=== PATIENT | male | born 1935 | race Caucasian/White ===

== ENCOUNTER 2017-09-12 08:10 | Day surgery (SDC) | payer OTHER, MEDICARE ==
--- NOTE | 2017-09-11 12:36 | RAD REPORT ---
EXAM DESCRIPTION: Annt Single View09/11/2017 12:30 pm CLINICAL HISTORY: Coronary artery disease/preop for heart catheterization COMPARISON: 2016 FINDINGS: A few areas of scarring or subsegmental atelectasis are present within the lung bases. Th e remainder of the lungs appear clear of acute infiltrate. The heart is mildly enlarged
[2017-09-11 12:41] LABS: Absolute Lymphocytes (CBC) 1.6 K/uL (0.7-4.9); Absolute Monocytes 0.8 K/uL (0.1-1.3); Absolute Neutrophil 4.5 K/uL (1.8-8.0); Basophils % 0.7 % (0-1.3); Eosinophils % 1.1 % (0-4.4); Hematocrit 31.3 % (39.6-49.0); Lymphocytes % 22.9 % (15.3-44.8); MCH 31.5 pg (27.0-35.0); MCV 93.5 fL (80-100); MPV 8.8 fL (7.6-11.3); RBC Red Blood Cell Count 3.35 M/uL (4.33-5.43)
[2017-09-11 12:46] LABS: Potassium 4.9 mmol/L (3.5-5.1)
[2017-09-11 13:15] LABS: Protime INR 0.93
[2017-09-11 13:51] LABS: Blood Morphology Comment NOT SEEN (NOT SEEN); Platelet Estimate ADEQ; Urine White Blood Cell Casts OK
[2017-09-12] MEDS ORDERED: NA CHLORIDE 0.9% 1,000 ML ONE (08:31)
[2017-09-12] MEDS ORDERED: HEPA 1000U/500MLS 1,000 UNIT/500 ML BAG IV ONE (09:42)
[2017-09-12] MEDS ORDERED: FENTANYL CITR 100 MCG/2 ML ONE (10:06)
[2017-09-12] MEDS ORDERED: MIDAZOLAM HCL 2 MG/2 ML INJ ONE ×2 (10:06→10:15)
[2017-09-12 12:03] VITALS: TEMP 97.9
[2017-09-12 12:16] VITALS: BP 124/61; O2SAT 96
--- NOTE | 2017-09-12 22:11 | OP ---
Surgeon: Carmelo Lance MD Admitted to my service as an outpatient. Reason For Admission: An outpatient heart catheterization. Procedures: Left heart catheterization, selective coronary artery angiogram. Indication: Unstable angina and history of coronary artery disease, status post LAD stent in the pas t. Indication: Mr. Guido is 82 years old who was brought to the phlebotomy lab assistant as an outpatient, prepped an d draped in the routine sterile fashion, given 2 mg of Versed and 25 of fentanyl for sedation. A 6-F rench sheath was introduced in the right common femoral artery successfully. Angio-Seal was used to close the case. Angiogram there was normal. A 6-Kyr[place] Milena catheters were used to do the miller ry angiogram. He had a very large RCA, it was right dominant, minimal plaquing in it, nondominant ci rcumflex and OM that were normal. He had minimal plaquing in the distal LAD but patent mid LAD stent . There were no complications or blood loss. Postoperative Diagnosis: Coronary artery disease, status post LAD stent in the past, patent; chronic coronary artery disease, plan is for medical therapy. Co-erector operator: Johana Angel. Sedation: Total conscious sedation for 30 minutes. NANCY/SUKH Voice ID: [id number] Report ID: [id number]
== END 2017-09-12 12:35 | disposition home or self-care (01) ==
LOC: CCL 08:10
PROC: 4A023N7 Measurement of Cardiac Sampling and Pressure, Left Heart, Percutaneous Approach (ICD-10-PCS; principal; 2017-09-12)
PROC: B211YZZ Fluoroscopy of Multiple Coronary Arteries using Other Contrast (ICD-10-PCS; 2017-09-12)
DX: I25.110 Atherosclerotic heart disease of native coronary artery with unstable angina pectoris (principal); R06.02 Shortness of breath; E11.9 Type 2 diabetes mellitus without complications; I10 Essential (primary) hypertension; E78.5 Hyperlipidemia, unspecified; E78.6 Lipoprotein deficiency; Z95.5 Presence of coronary angioplasty implant and graft
CPT/HCPCS: 36415; 71045; 80048; 82962; 85025; 85610; 85730; 93454; 93458; C1760; C1893; J2250 ×2; J3010; J7030

== ENCOUNTER 2019-08-14 17:25 | Observation (INO) | payer OTHER, MEDICARE ==
[2019-08-14] MEDS ORDERED: NA CHLORIDE 0.9% 2,000 ML ONE (18:16)
--- NOTE | 2019-08-14 18:33 | RAD REPORT ---
EXAM DESCRIPTION: RAD - Chest Single View - 08/14/2019 6:28 pm CLINICAL HISTORY: Fever;Dyspnea Chest pain. COMPARISON: Chest Pa And Lat (2 Views) dated 10/18/2018; Chest Single View dated 09/11/2017; Chest Sing le View dated 12/03/2015; Chest Single View dated 11/10/2015 FINDINGS: Portable technique limits examination quality. The lungs are underinflated which results in vascular crowding. The heart is mildly enlarged in size. Prominent degenerative changes are present both shoulders, greater on the right.
[2019-08-14 18:35] LABS: Absolute Lymphocytes (CBC) 0.8 K/uL (0.7-4.9); Basophils % 0.5 % (0-1.3); Hematocrit 29.9 % (39.6-49.0); Lymphocytes % 9.2 % (15.3-44.8); MPV 8.9 fL (7.6-11.3); RBC Red Blood Cell Count 3.23 M/uL (4.33-5.43)
[2019-08-14 18:38] LABS: Protime INR 1.03
[2019-08-14 18:56] LABS: ALT/SGPT 18 U/L (12-78); AST/SGOT 12 U/L (15-37); Albumin 3.5 g/dL (3.4-5.0); Alkaline Phosphatase 61 U/L (45-117); BUN Blood Urea Nitrogen 29 mg/dL (7-18); Bicarbonate 28 mmol/L (21-32); Bilirubin Direct 0.3 mg/dL (0-0.2); Bilirubin Total 0.9 mg/dL (0.2-1.0); Glucose Level 110 mg/dL (74-106); Magnesium 1.5 mg/dL (1.8-2.4); NT PRO-BNP 704 pg/mL (<450); Potassium 4.1 mmol/L (3.5-5.1); Protein, Total 7.4 g/dL (6.4-8.2); Sodium Level 135 mmol/L (136-145); Troponin (Emerg Dept Use Only) < 0.02 ng/mL (0.0-0.045)
[2019-08-14] MEDS ORDERED: Magnesium Sulfate 2gm IVPB 2 G/50 ML BAG IV ONE (19:18)
--- NOTE | 2019-08-14 19:46 | EDPHYS ---
Physician Documentation [facility] Name: Jose Le Age: 84 yrs Sex: Male : 1935 Arrival Date: 08/14/2019 Time: 17:29 Bed 4 Private MD: ED Physician Nikko Rodríguez HPI: 08/13 18:05 This 84 yrs old Male presents to ER via Ambulatory with complaints of Fever, jerrica Diarrhea, Low O2. 18:05 The patient reports fever, that was measured at 100 degrees Fahrenheit. Onset: The jerrica symptoms/episode began/occurred today. Modifying factors: there are no obvious modifying factors. Associated signs and symptoms: Pertinent positives: cough, diarrhea. Severity of symptoms: At their worst the symptoms were mild moderate in the emergency department the symptoms are unchanged. The patient has not experienced similar symptoms in the past. Historical: - Allergies: 17:43 Morphine; tw2 17:43 hydrocodone; tw2 17:43 acetaminophen; tw2 - Home Meds: 17:43 gabapentin 100 mg oral cap 1 caps 3 times per day [Active]; amlodipine 5 mg tab 1 tab tw2 once daily [Active]; aspirin 81 mg Oral TbEC 1 tab once daily [Active]; glimepiride 1 mg Oral tab 1 tab once daily [Active]; Glucosamine 500 mg Oral tab 3 capsule daily [Active]; krill oil 350 mg Oral 1 capsule daily [Active]; losartan 50 mg Oral tab 1 tab once daily [Active]; omeprazole 40 mg Oral cpDR 1 cap once daily [Active]; pravastatin 40 mg Oral tab 1 tab once daily [Active]; metoprolol tartrate 50 mg Oral tab 1 tab once daily [Active]; tamsulosin 0.4 mg Oral cp24 1 cap once daily [Active]; - PMHx: 17:43 Diabetes - NIDDM; High Cholesterol; tw2 - PSHx: 17:43 Heart stents; tw2 - Immunization history:: Adult Immunizations. - Social history:: Smoking status: . - Family history:: not pertinent. ROS: 18:05 Eyes: Negative for injury, pain, redness, and discharge, ENT: Negative for injury, jerrica pain, and discharge, Neck: Negative for injury, pain, and swelling, Cardiovascular: Negative for chest pain, palpitations, and edema, Respiratory: Negative for shortness of breath, cough, wheezing, and pleuritic chest pain, Back: Negative for injury and pain, : Negative for injury, bleeding, discharge, and swelling, MS/Extremity: Negative for injury and deformity, Skin: Negative for injury, rash, and discoloration, Neuro: Negative for headache, weakness, numbness, tingling, and seizure, Psych: Negative for depression, anxiety, suicide ideation, homicidal ideation, and hallucinations, Allergy/Immunology: Negative for hives, rash, and allergies, Endocrine: Negative for neck swelling, polydipsia, polyuria, polyphagia, and marked weight changes, Hematologic/Lymphatic: Negative for swollen nodes, abnormal bleeding, and unusual bruising. 18:05 Constitutional: Positive for body aches, chills, fever, malaise. 18:05 Abdomen/GI: Positive for diarrhea. Exam: 18:05 Head/Face: Normocephalic, atraumatic. Eyes: Pupils equal round and reactive to light, jerrica extra-ocular motions intact. Lids and lashes normal. Conjunctiva and sclera are non-icteric and not injected. Cornea within normal limits. Periorbital areas with no swelling, redness, or edema. ENT: Nares patent. No nasal discharge, no septal abnormalities noted. Tympanic membranes are normal and external auditory canals are clear. Oropharynx with no redness, swelling, or masses, exudates, or evidence of obstruction, uvula midline. Mucous membranes moist. Neck: Trachea midline, no thyromegaly or masses palpated, and no cervical lymphadenopathy. Supple, full range of motion without nuchal rigidity, or vertebral point tenderness. No Meningismus. Chest/axilla: Normal chest wall appearance and motion. Nontender with no deformity. No lesions are appreciated. Cardiovascular: Regular rate and rhythm with a normal S1 and S2. No gallops, murmurs, or rubs. Normal PMI, no JVD. No pulse deficits. Abdomen/GI: Soft, non-tender, with normal bowel sounds. No distension or tympany. No guarding or rebound. No evidence of tenderness throughout. Back: No spinal tenderness. No costovertebral tenderness. Full range of motion. Male : Normal genitalia with no discharge or lesions. Skin: Warm, dry with normal turgor. Normal color with no rashes, no lesions, and no evidence of cellulitis. MS/ Extremity: Pulses equal, no cyanosis. Neurovascular intact. Full, normal range of motion. Neuro: Awake and alert, GCS 15, oriented to person, place, time, and situation. Cranial nerves II-XII grossly intact. Motor strength 5/5 in all extremities. Sensory grossly intact. Cerebellar exam normal. Normal gait. Psych: Awake, alert, with orientation to person, place and time. Behavior, mood, and affect are within normal limits. 18:05 Constitutional: The patient appears alert, awake, comfortable, non-toxic, well developed, well hydrated, well groomed, well nourished, febrile, obese. 18:05 Respiratory: Exam negative for the patient does not display signs of respiratory distress, Respirations: normal, no acute changes, labored breathing, is not present, Breath sounds: are clear throughout, no bronchial sounds, no decreased breath sounds, no rales, rhonchi, no stridor, no wheezing. 18:15 ECG was reviewed by the Attending Physician. jerrica 18:15 Musculoskeletal/extremity: DVT Exam: No signs of deep vein thrombosis. no pain, no jerrica swelling, no tenderness, negative Homans' sign noted on exam, no appreciated bluish discoloration, no erythema, no increased warmth. Vital Signs: 17:43 BP 126 / 94; Pulse 94; Resp 18; Temp 99.3(O); Pulse Ox 93% on R/A; Weight 98.43 kg; tw2 Height 5 ft. 9 in. (175.26 cm); Pain 6/10; 18:33 BP 118 / 52; Pulse 94; Resp 19; Pulse Ox 95% on 2 lpm NC; sv 19:30 BP 106 / 51; Pulse 87; Resp 20; Temp 99.0(O); Pulse Ox 98% on 2 lpm NC; jb4 20:30 BP 100 / 56; Pulse 97; Resp 19; Pulse Ox 98% on R/A; jb4 20:42 Temp 98.9(O); oe 21:30 BP 126 / 63; Pulse 93; Resp 17; Temp 99.3(O); Pulse Ox 94% on 2 lpm NC; jb4 17:43 Body Mass Index 32.04 (98.43 kg, 175.26 cm) tw2 17:43 pt placed on 2L nc at this time and is 98% tw2 MDM: 17:51 Patient medically screened. [facility] 18:07 Data reviewed: vital signs, nurses notes, lab test result(s), EKG, radiologic studies, jerrica plain films. Data interpreted: ekg monitor tech: rate is 94 beats/min, Pulse oximetry: on room air is 93 %. Test interpretation: by ED physician or midlevel provider: ECG, plain radiologic studies. Counseling: I had a detailed discussion with the patient and/or guardian regarding: the historical points, exam findings, and any diagnostic results supporting the discharge/admit diagnosis, lab results, radiology results. 08/13 18:04 Order name: Basic Metabolic Panel; Complete Time: 18:59 [facility] 08/13 18:04 Order name: CBC with Diff; Complete Time: 18:53 [facility] 08/13 18:04 Order name: LFT's; Complete Time: 18:59 [facility] 08/13 18:04 Order name: Magnesium; Complete Time: 18:59 [facility] 08/13 18:04 Order name: NT PRO-BNP; Complete Time: 18:59 [facility] 08/13 18:04 Order name: PT-INR; Complete Time: 18:53 [facility] 08/13 18:04 Order name: Troponin (emerg Dept Use Only); Complete Time: 18:59 [facility] 08/13 18:04 Order name: Blood Culture Adult (2) jerrica 08/13 18:04 Order name: Lactate; Complete Time: 19:00 [facility] 08/13 18:04 Order name: Procalcitonin; Complete Time: 19:39 [facility] 08/13 18:04 Order name: Influenza Screen (a \T\ B); Complete Time: 19:00 [facility] 08/13 18:04 Order name: Stool Culture [facility] 08/13 18:04 Order name: Fecal Leukocyte Stain [facility] 08/13 18:04 Order name: Urine Culture [facility] 08/13 18:04 Order name: XRAY Chest (1 view); Complete Time: 18:53 [facility] 08/13 18:04 Order name: EKG; Complete Time: 18:05 [facility] 08/13 18:04 Order name: Cardiac monitoring; Complete Time: 18:04 [facility] 08/13 18:04 Order name: EKG - Nurse/Tech; Complete Time: 18:17 [facility] 08/13 18:04 Order name: IV Saline Lock; Complete Time: 18:34 [facility] 08/13 18:04 Order name: Labs collected and sent; Complete Time: 18:34 [facility] 08/13 18:04 Order name: O2 Per Protocol; Complete Time: 18:04 [facility] 08/13 18:04 Order name: O2 Sat Monitoring; Complete Time: 18:04 [facility] 08/13 18:04 Order name: Urine Dipstick-Ancillary (obtain specimen); Complete Time: 20:02 [facility] 08/13 20:02 Order name: Urine Dipstick--Ancillary (enter results) [facility] 08/13 20:13 Order name: Urine Dipstick-Ancillary; Complete Time: 21:21 EDMS EC:15 Rate is 98 beats/min. Rhythm is regular. QRS Enloe is Normal. NM interval is normal. QRS jerrica interval is normal. QT interval is normal. No Q waves. T waves are Normal. Clinical impression: Abnormal EKG without significant change. Interpreted by me. Reviewed by me. Administered Medications: 18:25 Drug: NS 0.9% 1000 ml Route: IV; Rate: 1 bolus; Site: right antecubital; sv 20:00 Follow up: Response: No adverse reaction; IV Status: Completed infusion; IV Intake: jb4 1000ml 18:25 Drug: NS 0.9% 1000 ml Route: IV; Rate: 1 bolus; Site: right antecubital; sv 20:00 Follow up: Response: No adverse reaction; IV Status: Completed infusion; IV Intake: jb4 1000ml 19:18 Drug: Magnesium Sulfate 2 grams Route: IVPB; Infused Over: 2 hrs; Site: right [facility] antecubital; 21:18 Follow up: Response: No adverse reaction; IV Status: Completed infusion [facility] 20:35 Drug: levofloxacin 500 mg Volume: 100 ml; Route: IVPB; Infused Over: 60 mins; Site: [facility] left hand; 21:35 Follow up: Response: No adverse reaction; IV Status: Completed infusion [facility] Disposition: 08/14/19 19:44 Hospitalization ordered by Winston Santos for Observation. Preliminary diagnosis are Fever, unspecified, Diarrhea, unspecified, Weakness, Hypoxemia, Anemia, unspecified, Unspecified kidney failure - acute on chronic, Hypomagnesemia, Type 2 diabetes mellitus. - Bed requested for Telemetry/MedSurg (Inpatient). - Status is Observation. jb4 - Condition is Stable. - Problem is new. - Symptoms have improved. Signatures: Dispatcher [employer] EDMS Dolores Gavin RN Nikko Silver MD MD cha Nieto, Roman, MD MD rn Lasagna, Tonya, RN RN tl1 Tamia Ritchie RN RN tw2 John Salamanca, RN RN jb4 Corrections: (The following items were deleted from the chart) 19:53 19:44 Hospitalization Ordered by Winston Santos MD for Observation. Preliminary diagnosis jerrica is Fever, unspecified; Diarrhea, unspecified; Weakness; Hypoxemia; Anemia, unspecified; Unspecified kidney failure. Bed requested for Telemetry/MedSurg (Inpatient). Status is Observation. Condition is Stable. Problem is new. Symptoms have improved. [facility] 19:53 19:53 08/14/2019 19:44 Hospitalization Ordered by Winston Santos MD for Observation. jerrica Preliminary diagnosis is Fever, unspecified; Diarrhea, unspecified; Weakness; Hypoxemia; Anemia, unspecified; Unspecified kidney failure - acute on chronic; Hypomagnesemia. Bed requested for Telemetry/MedSurg (Inpatient). Status is Observation. Condition is Stable. Problem is new. Symptoms have improved. jerrica 20:16 19:53 08/14/2019 19:44 Hospitalization Ordered by Winston Santos MD for Observation. tl1 Preliminary diagnosis is Fever, unspecified; Diarrhea, unspecified; Weakness; Hypoxemia; Anemia, unspecified; Unspecified kidney failure - acute on chronic; Hypomagnesemia; Type 2 diabetes mellitus. Bed requested for Telemetry/MedSurg (Inpatient). Status is Observation. Condition is Stable. Problem is new. Symptoms have improved. jerrica 21:18 20:16 08/14/2019 19:44 Hospitalization Ordered by Winston Santos MD for Observation. tl1 Preliminary diagnosis is Fever, unspecified; Diarrhea, unspecified; Weakness; Hypoxemia; Anemia, unspecified; Unspecified kidney failure - acute on chronic; Hypomagnesemia; Type 2 diabetes mellitus. Bed requested for Telemetry/MedSurg (Inpatient). Status is Observation. Condition is Stable. Problem is new. Symptoms have improved. tl1 21:47 21:18 08/14/2019 19:44 Hospitalization Ordered by Winston Santos MD for Observation. jb4 Preliminary diagnosis is Fever, unspecified; Diarrhea, unspecified; Weakness; Hypoxemia; Anemia, unspecified; Unspecified kidney failure - acute on chronic; Hypomagnesemia; Type 2 diabetes mellitus. Bed requested for Telemetry/MedSurg (Inpatient). Status is Observation. Condition is Stable. Problem is new. Symptoms have improved. tl1
--- NOTE | 2019-08-14 19:46 | ER ---
Nurse's Notes [facility] Name: Jose Le Age: 84 yrs Sex: Male : 1935 Arrival Date: 08/14/2019 Time: 17:29 Bed 4 Private MD: Diagnosis: Fever, unspecified;Diarrhea, unspecified;Weakness;Hypoxemia;Anemia, unspecified;Unspecified kidney failure-acute on chronic;Hypomagnesemia;Type 2 diabetes mellitus Presentation: 08/13 17:32 Chief complaint: Spouse and/or significant other states: started the night before tw2 yesterday he started feeling bad, but the diarrhea started last night or about 4 am this morning, i gave him the immodium and he has only been once or twice, this afternoon about 3pm he said he felt like he had a chill, it was 100.5, he has been saying his oxygen level is low and yesterday he said he britany short of breath, he uses 3 L oxygen at home. Coronavirus screen: Patient denies a cough. Patient reports shortness of breath or difficulty breathing. Patient reports a measured and/or subjective temperature greater than 100.4F. Patient denies travel on a cruise ship or to a country the [facility] currently lists as an affected area. Patient denies contact with known and/or suspected case of COVID-19. Ebola Screen: Patient denies travel to an Ebola-affected area in the 21 days before illness onset. Onset of symptoms was August 14, 2019. 17:32 Method Of Arrival: Ambulatory tw2 17:36 Note pt ambulatory but requesting to go to bathroom at this time, states "i have to go tw2 i have diarrhea", w/c provided for pt to restroom at this time. spouse in triage room with me. 17:43 Chief complaint: Patient states: my stomach feels like it is just rolling and i have tw2 had diarrhea, i went once this morning and i have been taking immodium, dr. hartley wanted me to get checked. Initial Sepsis Screen: Does the patient meet any 2 criteria? No. Patient's initial sepsis screen is negative. Does the patient have a suspected source of infection? No. Patient's initial sepsis screen is negative. Risk Assessment: Do you want to hurt yourself or someone else? Patient reports no desire to harm self or others. 17:43 Acuity: ISIS 3 tw2 Triage Assessment: 17:45 General: Appears in no apparent distress. obese, well groomed, Behavior is calm, tw2 cooperative, appropriate for age. Pain: Complains of pain in abdomen. GI: Reports diarrhea. Historical: - Allergies: 17:43 Morphine; tw2 17:43 hydrocodone; tw2 17:43 acetaminophen; tw2 - Home Meds: 17:43 gabapentin 100 mg oral cap 1 caps 3 times per day [Active]; amlodipine 5 mg tab 1 tab tw2 once daily [Active]; aspirin 81 mg Oral TbEC 1 tab once daily [Active]; glimepiride 1 mg Oral tab 1 tab once daily [Active]; Glucosamine 500 mg Oral tab 3 capsule daily [Active]; krill oil 350 mg Oral 1 capsule daily [Active]; losartan 50 mg Oral tab 1 tab once daily [Active]; omeprazole 40 mg Oral cpDR 1 cap once daily [Active]; pravastatin 40 mg Oral tab 1 tab once daily [Active]; metoprolol tartrate 50 mg Oral tab 1 tab once daily [Active]; tamsulosin 0.4 mg Oral cp24 1 cap once daily [Active]; - PMHx: 17:43 Diabetes - NIDDM; High Cholesterol; tw2 - PSHx: 17:43 Heart stents; tw2 - Immunization history:: Adult Immunizations. - Social history:: Smoking status: . - Family history:: not pertinent. Screenin:00 Abuse screen: Denies threats or abuse. Denies injuries from another. Nutritional sv screening: No deficits noted. Tuberculosis screening: No symptoms or risk factors identified. Fall Risk None identified. Assessment: 18:00 General: Appears in no apparent distress. comfortable, well developed, Behavior is sv calm, cooperative, appropriate for age. General: Reports fever for 1-2 days, a low O2 sat of at least 83%. Reports he uses O2 intermittently when he feels like he needs it. Has not been dx with any lung issues or COPD. Pain: Denies pain. Neuro: Level of Consciousness is awake, alert, obeys commands, Oriented to person, place, time, situation, Moves all extremities. Full function. Cardiovascular: Patient's skin is warm and dry. Respiratory: Airway is patent Respiratory effort is even, unlabored, Respiratory pattern is regular, symmetrical. GI: Reports diarrhea. Derm: Skin is intact, Skin is pink, warm \\T\\ dry. 18:33 Reassessment: Patient appears in no apparent distress at this time. No changes from sv previously documented assessment. Patient and/or family updated on plan of care and expected duration. Pain level reassessed. Patient is alert, oriented x 3, equal unlabored respirations, skin warm/dry/pink. 19:10 Reassessment: Patient appears in no apparent distress at this time. Patient and/or jb4 family updated on plan of care and expected duration. Pain level reassessed. Patient is alert, oriented x 3, equal unlabored respirations, skin warm/dry/pink. 20:30 Reassessment: Patient appears in no apparent distress at this time. Patient and/or jb4 family updated on plan of care and expected duration. Pain level reassessed. Patient is alert, oriented x 3, equal unlabored respirations, skin warm/dry/pink. 20:51 Reassessment: attempted to call report, instructed to call back. jb4 21:28 Reassessment: Patient appears in no apparent distress at this time. Patient and/or jb4 family updated on plan of care and expected duration. Pain level reassessed. Patient is alert, oriented x 3, equal unlabored respirations, skin warm/dry/pink. Attempted to call report, instructed to wait for call back. 21:41 Reassessment: Patient appears in no apparent distress at this time. Patient and/or jb4 family updated on plan of care and expected duration. Pain level reassessed. Patient is alert, oriented x 3, equal unlabored respirations, skin warm/dry/pink. Report given to ALBERTO Rodriguez. Vital Signs: 17:43 BP 126 / 94; Pulse 94; Resp 18; Temp 99.3(O); Pulse Ox 93% on R/A; Weight 98.43 kg; tw2 Height 5 ft. 9 in. (175.26 cm); Pain 6/10; 18:33 BP 118 / 52; Pulse 94; Resp 19; Pulse Ox 95% on 2 lpm NC; sv 19:30 BP 106 / 51; Pulse 87; Resp 20; Temp 99.0(O); Pulse Ox 98% on 2 lpm NC; jb4 20:30 BP 100 / 56; Pulse 97; Resp 19; Pulse Ox 98% on R/A; jb4 20:42 Temp 98.9(O); oe 21:30 BP 126 / 63; Pulse 93; Resp 17; Temp 99.3(O); Pulse Ox 94% on 2 lpm NC; jb4 17:43 Body Mass Index 32.04 (98.43 kg, 175.26 cm) tw2 17:43 pt placed on 2L nc at this time and is 98% tw2 ED Course: 17:29 Patient arrived in ED. mr 17:37 Arm band placed on. tw2 17:45 Triage completed. tw2 17:47 Dolores Gavin, RN is Primary Nurse. sv 17:51 Nikko Rodríguez MD is Attending Physician. jerrica 18:00 Patient has correct armband on for positive identification. Bed in low position. Call sv light in reach. Side rails up X2. Adult w/ patient. pigment pumper on. Pulse ox on. NIBP on. Door closed. Head of bed elevated. 18:10 First set of blood cultures drawn by me. Inserted saline lock: 20 gauge in right sv antecubital area, using aseptic technique. Blood collected. Flushed right antecubital with 5 ml normal saline. 18:16 EKG done, by ED staff, reviewed by Nikko Rodríguez MD. [facility] 18:25 Second set of blood cultures drawn by me, Flu and/or RSV swab sent to lab. sv 18:26 X-ray(s) taken. sv 18:28 XRAY Chest (1 view) In Process Unspecified. EDMS 18:34 Awaiting lab results, Awaiting radiology results. sv 19:04 Report given to Chilango DOMINGUEZ and Ben DOMINGUEZ. sv 19:05 Primary Nurse role handed off by Dolores Gavin, ALBERTO sv 19:17 Paz Burleson, RN is Primary Nurse. ph 19:17 John Salamanca, RN is Primary Nurse. jb4 19:43 Winston Hartley MD is Hospitalizing Provider. jerrica 20:30 Inserted saline lock: 22 gauge in left hand, using aseptic technique. tt3 21:27 No provider procedures requiring assistance completed. Patient admitted, IV remains in jb4 place. Administered Medications: 18:25 Drug: NS 0.9% 1000 ml Route: IV; Rate: 1 bolus; Site: right antecubital; sv 20:00 Follow up: Response: No adverse reaction; IV Status: Completed infusion; IV Intake: jb4 1000ml 18:25 Drug: NS 0.9% 1000 ml Route: IV; Rate: 1 bolus; Site: right antecubital; sv 20:00 Follow up: Response: No adverse reaction; IV Status: Completed infusion; IV Intake: jb4 1000ml 19:18 Drug: Magnesium Sulfate 2 grams Route: IVPB; Infused Over: 2 hrs; Site: right jb4 antecubital; 21:18 Follow up: Response: No adverse reaction; IV Status: Completed infusion jb4 20:35 Drug: levofloxacin 500 mg Volume: 100 ml; Route: IVPB; Infused Over: 60 mins; Site: jb4 left hand; 21:35 Follow up: Response: No adverse reaction; IV Status: Completed infusion jb4 Intake: 20:00 IV: 1000ml; Total: 1000ml. jb4 20:00 IV: 1000ml; Total: 2000ml. jb4 Outcome: 19:44 Decision to Hospitalize by Provider. jerrica 21:41 Admitted to Tele accompanied by tech, via wheelchair, room 431, with oxygen, with jb4 chart, Report called to ALBERTO Rodriguez 21:41 Condition: stable 21:41 Discharge instructions given to patient, family, Instructed on the need for admit, Demonstrated understanding of instructions. 21:47 Patient left the ED. jb4 Signatures: Dispatcher [employer] Dolores Stallworth, RN Nikko Silver MD MD cha Rivera, Lynette mr BurlesonPaz RN RN Tamia Ritchie RN RN 2 John Salamanca RN RN jb Rolo Swanson Maria Ben Coe tt3 Corrections: (The following items were deleted from the chart) 20:31 20:27 Inserted saline lock: in left hand, using aseptic technique. tt3 tt3
[2019-08-14 20:13] LABS: Urine Blood NEGATIVE (NEG); Urine Glucose NEGATIVE (NEG); Urine Protein NEGATIVE (NEG); Urine pH 5.5 (5.0-7.0)
[2019-08-14] MEDS ORDERED: Levofloxacin500mg IV 500 MG/100 ML BAG IV ONE (20:14)
[2019-08-14] MEDS ORDERED: GLUCAGON 1 MG/VIAL IM PRN (22:01)
[2019-08-14] MEDS ORDERED: ONDANSETRON 4 MG/2 ML VIAL IV PRN (22:01)
[2019-08-14] MEDS ORDERED: ACETAMINOPHEN 500 MG TAB PO PRN (22:01)
[2019-08-14] MEDS ORDERED: D50W 25 GM/50 ML SYRINGE/VIAL IV PRN (22:01)
[2019-08-14] MEDS: INSULIN -REGULAR HUMAN 50 UNIT/0.5 ML ML SQ SCH (22:01)
[2019-08-14 22:22] VITALS: BMI 32.7
[2019-08-14] MEDS: MAGNESIUM OXIDE 400 MG TAB PO SCH (22:57)
[2019-08-14] MEDS: FAMOTIDINE 20 MG/2 ML VIAL IV SCH (22:57)
[2019-08-14] MEDS: NA CHLORIDE 0.9% 1,000 ML IV SCH (22:57)
[2019-08-14] MEDS: ALBUTEROL 2.5 MG/3 ML NEB SOL NEB SCH (23:16)
[2019-08-14] MEDS: IPRATROPIUM BROM 0.5MG/2.5ML NEB SCH (23:16)
[2019-08-15] MEDS: IPRATROPIUM BROM 0.5MG/2.5ML NEB SCH ×4 (02:00→19:40)
[2019-08-15] MEDS: ALBUTEROL 2.5 MG/3 ML NEB SOL NEB SCH ×4 (02:00→19:40)
[2019-08-15 04:21] LABS: Absolute Lymphocytes (CBC) 0.6 K/uL (0.7-4.9); Basophils % 0.5 % (0-1.3); Hematocrit 27.2 % (39.6-49.0); Lymphocytes % 8.7 % (15.3-44.8); MPV 9.1 fL (7.6-11.3); RBC Red Blood Cell Count 2.95 M/uL (4.33-5.43)
[2019-08-15 04:26] LABS: Bilirubin Direct 0.2 mg/dL (0-0.2); Bilirubin Total 0.6 mg/dL (0.2-1.0); Potassium 3.7 mmol/L (3.5-5.1); Protein, Total 6.5 g/dL (6.4-8.2)
[2019-08-15 05:00] LABS: Blood Morphology Comment NOT SEEN (NOT SEEN); Platelet Estimate ADEQ
[2019-08-15] MEDS ORDERED: POTASSIUM 25 MEQ EFFERV TAB PO ONE (05:45)
[2019-08-15] MEDS: NA CHLORIDE 0.9% 1,000 ML IV SCH ×3 (06:06→15:01)
--- NOTE | 2019-08-15 07:16 | EKG ---
Test Date: 2019-08-14 Test Time: 18:11:44 Heel Stainer: GENESIS MEASUREMENT RESULTS: Intervals: Rate: 98 MA: 186 QRSD: 122 QT: 366 QTc: 467 Dawn: P: 79 MA: 186 QRS: 12 T: -27 INTERPRETIVE STATEMENTS: Sinus rhythm with premature supraventricular complexes with frequent premature ventricular complexes and fusion complexes Right bundle branch block T wave abnormality, consider inferolateral ischemia Abnormal ECG Compared to ECG 12/03/2015 15:30:09 Fusion complex(es) now present Right bundle-branch block now present T-wave abnormality now present Possible ischemia now present Incomplete right bundle-branch block no longer present Left ventricular hypertrophy no longer present Electronically Signed On 08-15-19 07:15:10 CDT by Carmelo Lance
[2019-08-15] MEDS: INSULIN -REGULAR HUMAN 50 UNIT/0.5 ML ML SQ SCH ×4 (07:30→20:58)
[2019-08-15] MEDS: MAGNESIUM OXIDE 400 MG TAB PO SCH ×2 (08:35→20:57)
[2019-08-15] MEDS ORDERED: Levofloxacin500mg IV 500 MG/100 ML BAG IV SCH ×2 (09:00→18:00)
[2019-08-15 14:16] LABS: C.diff Antigen/Toxin Ag neg : Tox neg (NEG : NEG)
[2019-08-15] MEDS: FAMOTIDINE 20 MG/2 ML VIAL IV SCH (20:56)
--- NOTE | 2019-08-16 00:32 | HP ---
Date of Admission: 08/15/2019 Chief Complaint: Diarrhea and fever. History Of Present Illness: This is an 84-year-old male patient who contacted my office yesterday with diarrhea and fever problem. He was advised to come to emergency room and after he was evaluated in the ER, he was admitted to the hospital. Patient denies any nausea, vomiting. Denies any abdominal pain. Denies any recent travel or any recent antibiotic use. No blood in stool. His diarrhea he describes as liquid watery stool several times in last 24 hours. No sick contact with any family member. Medications: List reviewed. Review of Systems: GI: As mentioned above. Constitutional: As mentioned above. All other systems reviewed and negative. Allergies: TO HYDROCODONE, DEMEROL, AND MORPHINE. Past Medical History: Significant for coronary artery disease, hypertension, type 2 diabetes mellitus, hyperlipidemia, paroxysmal atrial fibrillation, benign prostatic hypertrophy, allergic rhinitis, osteoarthritis at multiple sites, vitamin B12 deficiency. Past Surgical History: Significant for coronary artery angioplasty with stent placement, laparoscopic cholecystectomy, right ear surgery and arthroscopic knee surgery. Family History: Significant for congestive heart failure. Social History: Negative for smoking, alcohol use. Physical Examination: Vital Signs: Temperature 98.3, pulse 71, respiratory rate 20, blood pressure 121/62, oxygen saturation 95%. Height 5 feet 9 inches, weight 221 pounds. General: Awake, alert, oriented, not in distress. HEENT: Head atraumatic, normocephalic. Conjunctivae nonerythematous. Sclerae white. Mouth, no thrush or edema noted. Ears/Nose, no mass, lesion, discharge noted. Neck: Supple. No JVD, lymph nodes, bruit, thyromegaly noted. Lungs: Bilateral good equal air entry. Clear to auscultation. No rhonchi. No rales. Heart: Normal heart sounds, no murmur or gallop. Abdomen: Soft, bowel sounds normal. No guarding, rigidity, tenderness, mass, hepatosplenomegaly, distention, or bruit noted. Extremities: No leg edema. No calf tenderness. Skin: No rash, ulcer, cellulitis. Lymphatics: No lymph node enlargement in neck, supraclavicular, infraclavicular region. Neuro: No focal neurological deficit. Chest: Unremarkable. External Genitalia: Deferred. Rectal: Deferred. Laboratory Data: Initial white count 9.2, hemoglobin 9.9, platelets 157. Repeat white count this morning 7.3, hemoglobin 9, platelets 137, and 15% bas. Initial sodium 135, potassium 4.1, chloride 101, bicarb 28, BUN 29, creatinine 1.49, glucose 110, magnesium 1.5. Liver function tests unremarkable. Procalcitonin 0.05. Troponin less than 0.02. Repeat blood work this morning, sodium 138, potassium 3.7, chloride 107, bicarb 26, BUN 25, creatinine 1.24, glucose 138. Liver function tests unremarkable. Urinalysis negative. Chest x- ray, no acute cardiopulmonary changes. Impression: 1. Acute gastroenteritis. 2. Volume depletion. 3. Coronary artery disease. 4. Hypertension. 5. Hyperlipidemia. 6. Type 2 diabetes mellitus. 7. Osteoarthritis, multiple sites. 8. Benign prostatic hypertrophy. 9. Paroxysmal atrial fibrillation. 10. Vitamin B12 deficiency. 11. Hypomagnesemia. Plan: Admit the patient to hospital for further evaluation and management of this problem. We will go ahead and give IV fluid for volume depletion. Stool was ordered for C diff and culture. We will give empiric antibiotic, Levaquin and metronidazole. Repeat blood work tomorrow morning and I will see him tomorrow. Possible discharge to go home tomorrow. Ambulation was encouraged. DAHIANA/MODL Voice ID: [id number] MADY
[2019-08-16] MEDS: IPRATROPIUM BROM 0.5MG/2.5ML NEB SCH ×2 (00:43→08:00)
[2019-08-16] MEDS: ALBUTEROL 2.5 MG/3 ML NEB SOL NEB SCH ×2 (00:43→08:00)
[2019-08-16] MEDS: NA CHLORIDE 0.9% 1,000 ML IV SCH (04:02)
[2019-08-16 06:45] LABS: Absolute Lymphocytes (CBC) 1.1 K/uL (0.7-4.9); Basophils % 0.5 % (0-1.3); Hematocrit 28.1 % (39.6-49.0); Lymphocytes % 17.4 % (15.3-44.8); MPV 8.6 fL (7.6-11.3); RBC Red Blood Cell Count 3.03 M/uL (4.33-5.43)
[2019-08-16] MEDS: INSULIN -REGULAR HUMAN 50 UNIT/0.5 ML ML SQ SCH (07:30)
[2019-08-16] MEDS: MAGNESIUM OXIDE 400 MG TAB PO SCH (08:32)
[2019-08-16 08:39] VITALS: O2SAT 95
[2019-08-16 08:41] VITALS: BP 144/76; TEMP 97
--- NOTE | 2019-08-17 04:50 | DS ---
Date of Discharge: 08/16/2019 Physical Examination: HEENT: Unremarkable. Lungs: Clear to auscultation. Cardiac: Heart sounds normal. Abdomen: Soft, bowel sounds normal. No guarding, rigidity, tenderness, distention. Extremities: No leg edema. Laboratory Data: Labs done during this hospitalization: Upon admission, white count 6.2, hemoglobin 9.9, platelets 157. Yesterday, white count 7.3, hemoglobin 9, platelets 137 with 15% bands. Today, white count 6.6, hemoglobin 9.4, platelets 145 and no bands reported today. Chemistry: Sodium 143, potassium 4, chloride 110, bicarb 26, BUN 17, creatinine 1.13, glucose 143. Hemoglobin A1c pending. The patient's COVID test results pending. Upon admission, BUN 29, creatinine 1.49. Hospital Course: 84-year-old male patient admitted to the hospital with diarrhea and fever. Please see dictated H and P for more information. After patient was evaluated in the ER, he was admitted to the hospital with acute gastroenteritis and volume depletion. IV fluid was given. IV antibiotic, L evaquin was started. Overall, patient's condition has improved. He reported this morning no abdomin al pain. He had normal bowel movement early this morning. No more diarrhea. His appetite was good. No nausea, no vomiting. Overall, he feels well and has no complaints. Patient was discharged to [facility] home in stable condition today. Final Diagnoses: 1.Acute gastroenteritis. 2.Volume depletion. 3.Coronary artery disease. 4.Hypertension. 5.Hyperlipidemia. 6.Type 2 diabetes mellitus. 7.Osteoarthritis, multiple sites. 8.Benign prostatic hypertrophy. 9.Anemia, chronic. 10.Paroxysmal atrial fibrillation. 11.Hypomagnesemia. 12.Vitamin B12 deficiency anemia. Discharge Medications And Instructions: 1.Continue prior home medications. 2.Take Levaquin 500 mg p.o. daily for 5 days. 3.Follow up at my office next week on 08/21/2019 or 08/22/2019. DAHIANA/MODL Voice ID: [id number] Report ID: [id number]
== END 2019-08-16 09:40 | disposition home or self-care (01) ==
LOC: ER 17:25 → ERHOLD 19:46 → 4TH 21:41
PROVIDERS: ADMIT Internal Medicine; ATTEND Internal Medicine
DX: K52.9 Noninfective gastroenteritis and colitis, unspecified (principal); E86.9 Volume depletion, unspecified; I25.10 Atherosclerotic heart disease of native coronary artery without angina pectoris; I10 Essential (primary) hypertension; E78.5 Hyperlipidemia, unspecified; E11.9 Type 2 diabetes mellitus without complications; M89.49 Other hypertrophic osteoarthropathy, multiple sites; N40.0 Benign prostatic hyperplasia without lower urinary tract symptoms; D64.9 Anemia, unspecified; I48.0 Paroxysmal atrial fibrillation; E53.8 Deficiency of other specified B group vitamins; E83.42 Hypomagnesemia; R50.9 Fever, unspecified; R19.7 Diarrhea, unspecified; R05 Cough; Z20.828 Contact with and (suspected) exposure to other viral communicable diseases; I45.10 Unspecified right bundle-branch block; Z95.5 Presence of coronary angioplasty implant and graft
CPT/HCPCS: 96365; 96361; 96368; 93005; 87040 ×2; 87045; 85025 ×3; 87086; 80048 ×3; 36415 ×2; 83735; 89055; 85610; 82947 ×6; 80076 ×2; 87046; 83605; 87077; 87186; 81003; 87324; 83036; 84484; 83690; 84145; 83880; 87449; 87804 ×2; 71045; 94640; 99285; 96366; U0002; J3475; J7030 ×5; G0378 ×4; 87088

== ENCOUNTER 2021-04-21 11:06 | Emergency (ER) | payer OTHER, MEDICARE ==
[2021-04-21 12:11] LABS: Absolute Lymphocytes (CBC) 1.8 K/uL (0.7-4.9); Hematocrit 32.6 % (39.6-49.0); Lymphocytes % 25.1 % (15.3-44.8); RBC Red Blood Cell Count 3.46 M/uL (4.33-5.43)
[2021-04-21 12:23] LABS: Albumin 3.7 g/dL (3.4-5.0); Bilirubin Direct 0.2 mg/dL (0-0.2); Bilirubin Total 0.8 mg/dL (0.2-1.0); Potassium 4.3 mmol/L (3.5-5.1); Protein, Total 7.2 g/dL (6.4-8.2)
--- NOTE | 2021-04-21 12:33 | RAD REPORT ---
EXAM DESCRIPTION: CT - Spine Lumbar Wo Con - 04/21/2021 12:04 pm CLINICAL HISTORY: Lower back pain;Pain;Numbness/tingling COMPARISON: No comparisons TECHNIQUE: Axial noncontrast CT imaging of the lumbar spine was performed with coronal and sagittal re-formatted images. All CT scans are performed using dose optimization technique as appropriate and may include automated exposure control or mA/KV adjustment according to patient size. FINDINGS: No acute lumbar spine fracture seen. No aggressive marrow pattern or malalignment. Multile blake degenerative changes are present in the spine. Multilevel degenerative disc disease with both barak ral foraminal narrowing and central spinal stenosis. Stenosis is at least moderate at L1-2 and also l ikely L2-3. Neural foraminal narrowing is most advanced on the right at L1-L2. Cholecystectomy . Aort ic ectasia. Paraspinal tissues are normal in thickness. No paraspinal abscess or hematoma seen. Intervertebral disc disease assessment is inherently limited by CT. IMPRESSION: No acute fracture of the lumbar spine. Multilevel degenerative disc disease with both ce ntral spinal stenosis and neural foraminal narrowing. MRI could better assess. Consider MRI follow-up for assessment of disc disease if clinically desired.
--- NOTE | 2021-04-21 14:49 | RAD REPORT ---
EXAM DESCRIPTION: MRI - Lumbar Spine Wo Kai - 04/21/2021 2:35 pm CLINICAL HISTORY: Low back pain, numbness tingling COMPARISON: Same-day CT TECHNIQUE: Sagittal T1-weighted, T2-weighted and T2-STIR weighted sequences were obtained. Axial T1 -weighted and heavily T2-weighted sequenceswere obtained through the lumbar disc levels. FINDINGS: Lumbar bodies are normal in height and alignment. No suspicious marrow signal. No paraspin al masses. Conus is normal with no clumping or thickening of the cauda equina. T12-L1 level: No significant findings. L1-2 level: Small subligamentous disc bulge with disc height loss and facet arthropathy results in mo derate left neural foraminal narrowing. Mild right neural foraminal narrowing is noted. No central sp inal stenosis. L2-3 level: Broad-based disc bulge with disc height loss, ligamentum flavum, and facet hypertrophy re sults in mild central spinal stenosis and moderate bilateral neural foraminal narrowing. L3-4 level: Broad-based disc bulge with disc height loss, ligamentum flavum and facet hypertrophy res ults in mild to moderate central spinal stenosis, moderate left neural foraminal narrowing, and moder ate right neural foraminal narrowing. L4-5 level: Broad-based disc bulge with facet arthropathy including a synovial cyst along the medial aspect of the right facet joint that results in moderate central spinal stenosis including severe low right lateral recess stenosis and moderate bilateral neural foraminal narrowing. L5-S1 level: No significant findings. IMPRESSION: Multilevel degenerative disc disease. Regarding a bilateral lower extremity radiculopath y, this is favored to be related to a combination of degenerative changes at L4-5 but which includes a synovial cyst that results in moderate central spinal stenosis, right lateral recess stenosis, and neural foraminal narrowing.
[2021-04-21] MEDS ORDERED: GABAPENTIN 300 MG CAP ONE (17:17)
--- NOTE | 2021-04-21 17:46 | ER ---
Nurse's Notes [facility] Name: Scott Le Age: 86 yrs Sex: Male : 1935 Arrival Date: 04/21/2021 Time: 11:07 Bed 10 Private MD: Diagnosis: Low back pain;Radiculopathy, lumbar region Presentation: 04/21 11:16 Chief complaint: Patient states: 1 week ago I started experiencing trouble walking, it ab2 started with numbness in my feet and calf and progressed to pain shooting down the back of my legs when I attempt to walk. Patient is having achy discomfort even while sitting but if he attempts to stand and walk the pain shoots from the tip of his legs down towards his ankles. Coronavirus screen: Vaccine status: Patient reports receiving the 2nd dose of the covid vaccine. Ebola Screen: Patient negative for fever greater than or equal to 101.5 degrees Fahrenheit, and additional compatible Ebola Virus Disease symptoms Patient denies exposure to infectious person. Patient denies travel to an Ebola-affected area in the 21 days before illness onset. Initial Sepsis Screen: Does the patient meet any 2 criteria? No. Patient's initial sepsis screen is negative. Does the patient have a suspected source of infection? No. Patient's initial sepsis screen is negative. Risk Assessment: Do you want to hurt yourself or someone else? Patient reports no desire to harm self or others. 11:16 Method Of Arrival: Wheelchair ab2 11:16 Acuity: ISIS 3 ab2 11:21 Onset of symptoms is unknown. ab2 Triage Assessment: 11:20 General: Appears uncomfortable, Behavior is calm. Pain: Complains of pain in right leg ab2 and left leg. Historical: - Allergies: 11:20 ACETAMINOPHEN; ab2 11:20 HYDROCODONE; ab2 11:20 Morphine; ab2 - PMHx: 11:20 Diabetes - NIDDM; High Cholesterol; ab2 - Immunization history:: Adult Immunizations Client reports receiving the 2nd dose of the Covid vaccine, Pneumococcal vaccine is not up to date, Flu vaccine is not up to date. - Social history:: Smoking status: Patient denies any tobacco usage or history of. Screenin:20 Abuse screen: Denies threats or abuse. Denies injuries from another. Nutritional ab2 screening: No deficits noted. Tuberculosis screening: No symptoms or risk factors identified. Fall Risk Fall in past 12 months (25 points). Assessment: 11:36 General: Appears in no apparent distress. comfortable, Behavior is calm, cooperative, ab2 appropriate for age. Pain: Complains of pain in right foot, left foot, right leg and left leg Pain currently is 7 out of 10 on a pain scale. Neuro: Level of Consciousness is awake, alert, obeys commands, Oriented to person, place, time, situation, Appropriate for age Lining Closer are equal bilaterally Moves all extremities. Speech is normal, Facial symmetry appears normal. Cardiovascular: No deficits noted. Denies chest pain, shortness of breath, Heart tones S1 S2 present Patient's skin is warm and dry. Chest pain is denied. Respiratory: No deficits noted. Airway is patent Respiratory effort is even, unlabored, Respiratory pattern is regular, symmetrical, Breath sounds are clear bilaterally. GI: No deficits noted. No signs and/or symptoms were reported involving the gastrointestinal system. Abdomen is round obese, Bowel sounds present X 4 quads. : No deficits noted. No signs and/or symptoms were reported regarding the genitourinary system. EENT: No deficits noted. No signs and/or symptoms were reported regarding the EENT system. Derm: No deficits noted. No signs and/or symptoms reported regarding the dermatologic system. Skin is intact. Musculoskeletal: Reports weakness in right foot, left foot, right leg and left leg pain in right foot, left foot, right leg and left leg. 13:51 Reassessment: Patient appears in no apparent distress at this time. Pt awaiting to go ab2 to MRI. Pt request to stay in wheelchair. Warm blankets provided. at bedside. Denies any further needs at this time. 14:53 Reassessment: Patient appears in no apparent distress at this time. returned from MRI. ab2 Denies any needs. remains at bedside. Vital Signs: 11:16 BP 127 / 54; Pulse 69; Resp 20 S; Temp 98.2(O); Pulse Ox 95% ; Weight 102.97 kg (R); ab2 Height 5 ft. 7 in. (170.18 cm) (R); 13:49 BP 131 / 57; Pulse 61; Resp 18; Pulse Ox 99% on R/A; ab2 15:36 BP 143 / 66; Pulse 68; Resp 16; Pulse Ox 97% on R/A; ab2 16:30 BP 139 / 74; Pulse 64; Resp 16; Pulse Ox 98% ; ab2 17:58 BP 137 / 81; Pulse 69; Resp 16; Pulse Ox 97% ; ab2 11:16 Body Mass Index 35.55 (102.97 kg, 170.18 cm) ab2 ED Course: 11:07 Patient arrived in ED. rg4 11:20 Triage completed. ab2 11:21 Arm band placed on left wrist. ab2 11:33 Christiano Royal is Primary Nurse. ab2 11:37 Patient has correct armband on for positive identification. ab2 11:37 No provider procedures requiring assistance completed. ab2 11:38 Bartolo Weaver MD is Attending Physician. kdr 11:58 Inserted saline lock: 20 gauge in right antecubital area, using aseptic technique. ab2 Blood collected. 11:59 Basic Metabolic Panel Sent. ab2 11:59 CBC with Diff Sent. ab2 11:59 Hepatic Function Sent. ab2 12:04 CT Lumbar Spine Wo Con In Process Unspecified. EDMS 14:34 MRI Lumbar Spine wo Con In Process Unspecified. EDMS 17:44 Mohini Santos MD is Referral Physician. kdr 18:00 IV discontinued, intact, bleeding controlled, No redness/swelling at site. Pressure ab2 dressing applied. Administered Medications: 17:17 Drug: Gabapentin 300 mg Route: PO; ab2 Outcome: 17:45 Discharge ordered by . kdr 17:59 Discharged to home via wheelchair, with family. ab2 17:59 Condition: good 17:59 Discharge instructions given to patient, family, Instructed on discharge instructions, follow up and referral plans. medication usage, Demonstrated understanding of instructions, follow-up care, medications, Prescriptions given X 1. 18:00 Patient left the ED. ab2 Signatures: Dispatcher [employer] EDMS Bartolo Weaver MD MD kdr Keely Corrales rg4 Christiano Royal ab2
--- NOTE | 2021-04-21 17:46 | EDPHYS ---
Physician Documentation [facility] Name: Scott Le Age: 86 yrs Sex: Male : 1935 Arrival Date: 04/21/2021 Time: 11:07 Bed 10 Private MD: ED Physician Bartolo Weaver HPI: 04/22 15:06 This 86 yrs old Male presents to ER via Wheelchair with complaints of Trouble Walking. kdr 15:57 The patient's problem is reported as States that he is having excruciating pain that kdr radiates from his low back down both legs. This pain occurs primarily when he is standing and attempting to ambulate. At rest or in a chair he is more comfortable laying down is more uncomfortable. This is been going on for some days to weeks. There is not an acute change in the most recent hours or days but just progressively worsening. Onset: The symptoms/episode began/occurred gradually, at an unknown time. Duration: The episode is continuous, The episodes are intermittent, the symptoms became worse the symptoms became persistent. Context: symptoms became apparent at an unknown time, occurred at home, occurred while the patient was walking. The symptoms are alleviated by Sitting and remaining relatively still. Associated signs and symptoms: The patient has no apparent associated signs or symptoms, Pertinent negatives: No change in bowel or bladder control. Severity of symptoms: At their worst the symptoms were incapacitating in the emergency department the symptoms have improved moderately, As long as the patient remains sitting in a chair he is relatively comfortable. Patient's baseline: Neuro: alert and fully oriented, Motor: no deficits, Ambulation: walks with assist only, Speech: normal. The patient has experienced similar episodes in the past, chronically. The patient has not recently seen a physician. Historical: - Allergies: 04/21 11:20 ACETAMINOPHEN; ab2 11:20 HYDROCODONE; ab2 11:20 Morphine; ab2 - PMHx: 11:20 Diabetes - NIDDM; High Cholesterol; ab2 - Immunization history:: Adult Immunizations Client reports receiving the 2nd dose of the Covid vaccine, Pneumococcal vaccine is not up to date, Flu vaccine is not up to date. - Social history:: Smoking status: Patient denies any tobacco usage or history of. ROS: 04/22 15:57 Constitutional: Negative for fever, chills, and weight loss, Eyes: Negative for injury, kdr pain, redness, and discharge, ENT: Negative for injury, pain, and discharge, Neck: Negative for injury, pain, and swelling, Cardiovascular: Negative for chest pain, palpitations, and edema, Respiratory: Negative for shortness of breath, cough, wheezing, and pleuritic chest pain, Abdomen/GI: Negative for abdominal pain, nausea, vomiting, diarrhea, and constipation, : Negative for injury, bleeding, discharge, and swelling, Skin: Negative for injury, rash, and discoloration, Neuro: Negative for headache, weakness, numbness, tingling, and seizure activity. Psych: Negative for depression, anxiety, suicide ideation, homicidal ideation, and hallucinations, Allergy/Immunology: Negative for hives, rash, and allergies, Endocrine: Negative for neck swelling, polydipsia, polyuria, polyphagia, and marked weight changes, Hematologic/Lymphatic: Negative for swollen nodes, abnormal bleeding, and unusual bruising. Back: Positive for pain with movement, radiated pain, of the lumbar area, sacrum, left low back and right low back. Exam: 15:57 Constitutional: This is a well developed, well nourished patient who is awake, alert, kdr and in no acute distress. Head/Face: Normocephalic, atraumatic. Eyes: Pupils equal round and reactive to light, extra-ocular motions intact. Lids and lashes normal. Conjunctiva and sclera are non-icteric and not injected. Cornea within normal limits. Periorbital areas with no swelling, redness, or edema. Chest/axilla: Normal chest wall appearance and motion. Nontender with no deformity. No lesions are appreciated. Respiratory: Lungs have equal breath sounds bilaterally, clear to auscultation and percussion. No rales, rhonchi or wheezes noted. No increased work of breathing, no retractions or nasal flaring. Abdomen/GI: Soft, non-tender, with normal bowel sounds. No distension or tympany. No guarding or rebound. No evidence of tenderness throughout. 15:57 Back: pain, that is mild, that is moderate, of the low back area, normal spinal alignment noted. 16:05 Radiologist reports: Significant degenerative disc disease and spondylosis kdr Vital Signs: 04/21 11:16 BP 127 / 54; Pulse 69; Resp 20 S; Temp 98.2(O); Pulse Ox 95% ; Weight 102.97 kg (R); ab2 Height 5 ft. 7 in. (170.18 cm) (R); 13:49 BP 131 / 57; Pulse 61; Resp 18; Pulse Ox 99% on R/A; ab2 15:36 BP 143 / 66; Pulse 68; Resp 16; Pulse Ox 97% on R/A; ab2 16:30 BP 139 / 74; Pulse 64; Resp 16; Pulse Ox 98% ; ab2 17:58 BP 137 / 81; Pulse 69; Resp 16; Pulse Ox 97% ; ab2 11:16 Body Mass Index 35.55 (102.97 kg, 170.18 cm) ab2 MDM: 17:45 Patient medically screened. kdr 04/22 15:57 Data reviewed: vital signs, nurses notes, lab test result(s), radiologic studies. kdr Counseling: I had a detailed discussion with the patient and/or guardian regarding: the historical points, exam findings, and any diagnostic results supporting the discharge/admit diagnosis, radiology results, the need for outpatient follow up. Physician consultation: Mohini Santos MD and will see patient in office, next week. 04/21 11:39 Order name: Basic Metabolic Panel kdr 04/21 11:39 Order name: CBC with Diff; Complete Time: 12:33 kdr 04/21 11:39 Order name: Hepatic Function; Complete Time: 12:33 kdr 04/21 11:39 Order name: CT Lumbar Spine Wo Con; Complete Time: 12:34 kdr 04/21 11:39 Order name: Basic Metabolic Panel; Complete Time: 12:33 EDMS 04/21 12:34 Order name: MRI Lumbar Spine wo Con; Complete Time: 15:13 kdr 04/21 11:39 Order name: IV Saline Lock; Complete Time: 11:59 kdr 04/21 11:39 Order name: Labs collected and sent; Complete Time: 11:59 kdr Administered Medications: 04/21 17:17 Drug: Gabapentin 300 mg Route: PO; ab2 Disposition Summary: 04/21/21 17:45 Discharge Ordered Location: Home kdr Problem: new kdr Symptoms: have improved kdr Condition: Stable kdr Diagnosis - Low back pain kdr - Radiculopathy, lumbar region kdr Followup: kdr - With: Mohini Santos MD - When: 2 - 3 days - Reason: If symptoms return, Further diagnostic work-up, Recheck today's complaints, Continuance of care, Re-evaluation by your physician Discharge Instructions: - Discharge Summary Sheet kdr - Acute Back Pain, Adult kdr - Musculoskeletal Pain kdr - Neuropathic Pain kdr - Chronic Back Pain, [id number] kdr Forms: - Medication Reconciliation Form kdr - Thank You Letter kdr - Prescription Opioid Use kdr Prescriptions: - Tylenol-Codeine #3 300 mg-30 mg Oral - take 1 tablet by ORAL route every 4-6 hours As needed May take 1 or 2 tablets kdr every 4-6 hours as needed for pain. These directions to proceed the regular directions above; 20 tablet; Refills: 0, Product Selection Permitted Signatures: Dispatcher [employer] Bartolo Sanchez MD MD kdr Bleininger, Alexis ab2
[2021-04-21 18:29] VITALS: TEMP 98.2
[2021-04-21 18:34] VITALS: BP 137/81; O2SAT 97
== END 2021-04-21 18:00 | disposition home or self-care (01) ==
LOC: ER 11:06
DX: M54.16 Radiculopathy, lumbar region (principal); Z88.5 Allergy status to narcotic agent; Z88.6 Allergy status to analgesic agent
CPT/HCPCS: 36415; 72131; 72148; 80048; 80076; 85025; 99284

== ENCOUNTER 2022-01-10 05:25 | Day surgery (SDC) | payer OTHER, MEDICARE ==
[2022-01-10] MEDS ORDERED: NA CHLORIDE 0.9% 1,000 ML ONE (05:57)
[2022-01-10] MEDS ORDERED: DEPO-MEDROL 40 MG/ML IM ONE (06:28)
[2022-01-10] MEDS ORDERED: THROMBIN 5000 UNITS/VIAL TOP ONE (06:29)
[2022-01-10] MEDS ORDERED: FENTANYL CITR 100 MCG/2 ML ONE (06:30)
[2022-01-10] MEDS ORDERED: propofoL 200 MG/20 ML VIAL IV ONE ×3 (06:31→08:06)
[2022-01-10] MEDS ORDERED: LIDOCAINE 2% MPF 5 ML VIAL ONE (06:31)
[2022-01-10] MEDS ORDERED: MIDAZOLAM HCL 2 MG/2 ML INJ ONE (06:31)
[2022-01-10] MEDS ORDERED: ONDANSETRON 4 MG/2 ML VIAL ONE (06:32)
[2022-01-10] MEDS ORDERED: ROCURONIUM 50 MG/5 ML VIAL IV ONE (06:32)
[2022-01-10] MEDS ORDERED: CEFAZOLIN SODIUM 2 GM/VIAL ONE (06:53)
[2022-01-10] MEDS ORDERED: EPHEDRINE SULF 50 MG/ML VIAL ONE (07:24)
[2022-01-10] MEDS: HYDROMORPHONE HCL 1 MG/ML INJ ONE ×2 (09:05→09:13)
[2022-01-10 09:29] VITALS: O2SAT 96
--- NOTE | 2022-01-10 10:03 | RAD REPORT ---
EXAM DESCRIPTION: RAD - Fluoroscopy <1 Hour - 01/10/2022 9:41 am CLINICAL HISTORY: Spinal decompression FINDINGS: Fluoroscopy time 0.1 minute. Seven fluoroscopic spot images obtained. L4-5 spinal decompression performed. The surgery performed by Dr. Quigley
[2022-01-10 10:04] VITALS: BP 128/56; TEMP 97.3
== END 2022-01-10 11:00 | disposition home or self-care (01) ==
LOC: OR 05:25
PROVIDERS: ATTEND Orthopaedic Surgery
PROC: 00NY0ZZ Release Lumbar Spinal Cord, Open Approach (ICD-10-PCS; 2022-01-10)
PROC: 01NB0ZZ Release Lumbar Nerve, Open Approach (ICD-10-PCS; principal; 2022-01-10 06:30)
DX: M48.062 Spinal stenosis, lumbar region with neurogenic claudication (principal); M54.50 Low back pain, unspecified; M54.16 Radiculopathy, lumbar region; E11.9 Type 2 diabetes mellitus without complications; E78.00 Pure hypercholesterolemia, unspecified
CPT/HCPCS: 82947 ×2; 63047; 63048; J2704 ×3; J2001; J3010; J1170; J7030; J2405; 76000; J1030; J2250

== ENCOUNTER 2023-08-14 21:58 | Observation (INO) | payer OTHER, MEDICARE ==
[2023-08-14] MEDS ORDERED: NA CHLORIDE 0.9% 1,000 ML ONE (22:21)
[2023-08-14] MEDS ORDERED: MECLIZINE HCL 12.5 MG TAB ONE (22:27)
[2023-08-14] MEDS ORDERED: PROMETHAZINE 25 MG TABLET ONE (22:28)
[2023-08-14 23:07] LABS: Absolute Lymphocytes (CBC) 0.9 K/uL (0.7-4.9); Absolute Monocytes 0.7 K/uL (0.1-1.3); Basophils % 0.5 % (0-1.3); Eosinophils % 0.2 % (0-4.4); Hematocrit 31.1 % (39.6-49.0); Hemoglobin 10.4 g/dL (13.6-17.9); Lymphocytes % 11.4 % (15.3-44.8); MCH 30.8 pg (27.0-35.0); MCHC 33.3 g/dL (32.0-36.0); MCV 92.6 fL (80-100); MPV 8.5 fL (7.6-11.3); Monocytes % 9.6 % (3.3-12.3); Neutrophils % 78.3 % (41.7-73.7); Nucleated Red Blood Cells % 0.3 % (0-0); Platelets 172 thou/uL (152-406); RBC Red Blood Cell Count 3.36 M/uL (4.33-5.43); Red Cell Distribution Width 16.2 % (12.1-15.2)
[2023-08-14 23:08] LABS: PT Prothrombin Time 11.6 SECONDS (9.5-12.5); Protime INR 1.06
[2023-08-14 23:10] LABS: Albumin 3.5 g/dL (3.4-5.0); Anion Gap 5.1 mEq/L (5.0-15.0); Bilirubin Direct 0.2 mg/dL (0-0.2); Bilirubin Indirect, Calculated 0.4 mg/dL (0.2-0.8); Bilirubin Total 0.6 mg/dL (0.2-1.0); Globulin 3.5 g/dL (2.3-3.5); Magnesium 2.8 mg/dL (1.6-2.4); Potassium 4.1 mEq/L (3.5-5.1); Troponin High Sensitivity 16.6 pg/mL (<58.9)
--- NOTE | 2023-08-15 02:09 | EDPHYS ---
Physician Documentation [facility] Name: Scott Le Age: 88 yrs Sex: Male : 1935 Arrival Date: 08/14/2023 Time: 21:58 Bed 2 Private MD: ED Physician Mynor Bruno HPI: 08/13 22:04 This 88 yrs old Male presents to ER via Unassigned with complaints of Anxiety.sp4 08/14 02:10 88-year-old male with history of diabetes and atrial fibrillation presents with acute sp4 generalized weakness dizziness and vertigo. Patient states he consumed cannabis gummy at home for arthritis related pain. Historical: - Allergies: 02:03 Hydrocodone-Acetaminophen; vc1 02:06 Morphine; lg3 02:06 ACETAMINOPHEN; lg3 - PMHx: 02:01 Diabetes mellitus; high cholesterol; vc1 - PSHx: 02:01 None; vc1 - Immunization history:: Adult Immunizations unknown. - Infectious Disease History:: Denies. - Social history:: Smoking status: unknown. ROS: 01:28 Constitutional: Negative for fever, chills, and weight loss, Positive dizziness, and sp4 generalized weakness 01:28 All other systems are negative, Exam: 01:27 Constitutional: This is a well developed, well nourished patient who is awake, alert, sp4 ill appearing, non toxic Overweight male Head/Face: Normocephalic, atraumatic. Eyes: Pupils equal round and reactive to light, extra-ocular motions intact. Lids and lashes normal. Conjunctiva and sclera are not injected. Cornea within normal limits. Periorbital areas with no swelling, redness, or edema. ENT: Nares patent. No nasal discharge, no septal abnormalities noted. Tympanic membranes are normal and external auditory canals are clear. Oropharynx with no redness, swelling, or masses, exudates, or evidence of obstruction, uvula midline. Mucous membranes moist. Neck: Trachea midline, no thyromegaly or masses palpated, and no cervical lymphadenopathy. Supple, full range of motion without nuchal rigidity, or vertebral point tenderness. Chest/axilla: Normal chest wall appearance and motion. Nontender with no deformity. No lesions are appreciated. Cardiovascular: Regular rate and rhythm with a normal S1 and S2. No gallops, murmurs, or rubs. Normal PMI, no JVD. No pulse deficits. Respiratory: Lungs have equal breath sounds bilaterally, clear to auscultation and percussion. No rales, rhonchi or wheezes noted. No increased work of breathing, no retractions or nasal flaring. Abdomen/GI: Soft, with normal bowel sounds. No distension or tympany. No guarding or rebound. No evidence of tenderness throughout. Back: No spinal tenderness. No costovertebral tenderness. Skin: Warm, dry with normal turgor. Normal color with no rashes, no lesions, and no evidence of cellulitis. MS/ Extremity: Pulses equal, no cyanosis. Neurovascular intact. Full, normal range of motion. Neuro: Awake and alert, GCS 15, oriented to person, place, time, and situation. Cranial nerves II-XII grossly intact. Motor strength 5/5 in all extremities. Sensory grossly intact. Psych: Awake, alert, with orientation to person, place and time. Behavior, mood, and affect are within normal limits 01:28 ECG was reviewed by the Attending Physician. Atrial fibrillation at a rate of 64, sp4 EKG time 2303. Vital Signs: 08/13 21:45 BP 143 / 62; Pulse 67; Resp 16; Temp 97.8; Pulse Ox 86% on R/A; Pain 0/10; kd4 23:38 BP 159 / 75; Pulse 67; Resp 18; Pulse Ox 95% on 3 lpm NC; kd4 08/14 00:18 BP 131 / 65; Pulse 67; Resp 13; Pulse Ox 90% ; vc1 00:56 BP 150 / 71; Pulse 61; Resp 16; Pulse Ox 100% 3 lpm ; kd4 02:04 Weight 103.87 kg; kd4 02:17 BP 146 / 67; Pulse 58; Resp 13; Temp 98.1; Pulse Ox 100% 3 lpm ; kd4 03:04 BP 148 / 64; Pulse 59; Resp 15; Pulse Ox 97% 3 lpm ; kd4 03:56 BP 133 / 67; Pulse 65; Resp 14; Pulse Ox 97% on 3 lpm NC; vc1 08/13 21:45 Pain Scale: Adult kd4 NIH Stroke Scale Scores: 08/13 23:08 NIHSS Score: 0 sp4 Scott Coma Score: 21:45 Eye Response: spontaneous(4). Motor Response: obeys commands(6). Verbal Response: kd4 oriented(5). Total: 15. 08/14 01:27 Eye Response: spontaneous(4). Motor Response: obeys commands(6). Verbal Response: sp4 oriented(5). Total: 15. MDM: 08/13 22:11 Patient medically screened. sp4 08/14 01:34 ED course: EXAM DESCRIPTION: CT of the head without contrast CLINICAL HISTORY: sp4 DIZZINESS COMPARISON: None available TECHNIQUE: Axial CT of the head obtained from the skull apex to the skull base without contrast. This exam was performed according to our departmental dose-optimization program, which includes automated exposure control, adjustment of the mA and/or kV according to patient size and/or use of iterative reconstruction technique. FINDINGS: No acute intracranial hemorrhage identified. No mass, mass effect, shift of the midline, abnormal extra-axial fluid collection or CT evidence of acute ischemic change identified. The ventricular system and sulcal spaces are mildly enlarged compatible with mild cerebral atrophy. Scattered areas of hypodensity throughout the supratentorial white matter are nonspecific and may be related to chronic small vessel ischemic change. The visualized paranasal sinuses and the mastoids are clear. No skull fracture identified. Visualized orbits and globes are unremarkable. Atherosclerotic calcification of the intracranial internal carotid arteries. IMPRESSION: 1. No acute intracranial abnormality by CT criteria. Electronically signed by: Ananth Duran DO 08/15/2023 12:05 AM CDT RP. 01:59 Differential Diagnosis altered mental status, sepsis, flu. Data reviewed: vital signs, sp4 nurses notes, EMS record, old medical records, lab test result(s), EKG, radiologic studies, CT scan. Consideration of Admission/Observation Patient was admitted/placed on observation. Escalation of care including admission/observation considered. Management of patient was discussed with the following: Primary Care Provider: Tom Montero MD . 02:08 ED course: Decision made to admit patient for generalized weakness and atrial sp4 fibrillation.. 08/13 22:11 Order name: Basic Metabolic Panel; Complete Time: 01:16 sp4 08/13 22:11 Order name: CBC with Diff; Complete Time: 01:16 sp4 08/13 22:11 Order name: LFT's; Complete Time: 01:16 sp4 08/13 22:11 Order name: Magnesium; Complete Time: 01:16 4 08/13 22:11 Order name: NT PRO-BNP; Complete Time: 01:16 [facility] 08/13 22:11 Order name: PT-INR; Complete Time: 01:16 4 08/13 22:11 Order name: Troponin HS; Complete Time: 01:16 4 08/13 22:11 Order name: XRAY Chest (1 view) [facility] 08/13 22:11 Order name: CT Head Brain wo Cont [facility] 08/13 22:11 Order name: EKG; Complete Time: 22:11 4 08/14 01:50 Order name: CONS Physician Consult EDMA 08/13 22:11 Order name: Cardiac monitoring; Complete Time: 00:03 [facility] 08/13 22:11 Order name: EKG - Nurse/Tech; Complete Time: 00:04 [facility] 08/13 22:11 Order name: IV Saline Lock; Complete Time: 00:03 [facility] 08/13 22:11 Order name: Labs collected and sent; Complete Time: 00:03 [facility] 08/13 22:11 Order name: O2 Per Protocol; Complete Time: 00:03 4 08/13 22:11 Order name: O2 Sat Monitoring; Complete Time: 00:03 4 EC:28 Rate is 64 beats/min. Rhythm is irregularly irregular, A fib. QRS [place] is Normal. QRS sp4 interval is prolonged. QT interval is normal. No ST changes noted. Clinical impression: No evidence of ischemia. Interpreted by me. Reviewed by me. Administered Medications: 08/13 22:21 Drug: NS 0.9% IV 1000 ml IV at 125 ml/hr continuous Route: IV; Rate: 125 ml/hr; Site: [facility] right antecubital; 08/14 03:58 Follow up: IV Status: Completed infusion; IV Intake: 700ml vc1 08/13 22:36 Drug: Meclizine PO 25 mg PO once Route: PO; [facility] 08/14 03:58 Follow up: Response: No adverse reaction; Marked relief of symptoms vc1 08/13 22:36 Drug: Promethazine PO 25 mg PO once Route: PO; 4 08/14 03:57 Follow up: Response: No adverse reaction; Marked relief of symptoms vc1 02:13 Drug: Enoxaparin Sub-Q 1 mg/kg Sub-Q once Route: Sub-Q; Site: left lower abdomen; kd4 03:57 Follow up: Response: No adverse reaction vc1 Disposition Summary: 08/15/23 02:08 Hospitalization Ordered Notes: Hospitalization Status: Observation sp4 Provider: Winston Santos sp4 Location: Telemetry/MedSurg (observation) sp4 Condition: Stable sp4 Problem: new sp4 Symptoms: have improved sp4 Bed/Room Type: Standard sp4 Room Assignment: 222(08/15/23 02:09) lg3 Diagnosis - Muscle weakness (generalized) sp4 - Generalized weakness, dizziness, atrial fibrillation sp4 Forms: - Medication Reconciliation Form sp4 - SBAR form sp4 - Leadership Thank You Letter sp4 NIH Stroke Scale - NIH Stroke Score Date: 08/14/2023 Time: 23:08 Total Score = 0 10. Dysarthria (speech clarity - read or repeat words) - 0(Normal) 11. Extinction and Inattention (visual/tactile/auditory/spatial/personal) - 0(No abnormality) 1a. Level of Consciousness (LOC) - 0(Alert) 1b. Level of Consciousness (LOC) (Month \T\ Age) - 0(Both) 1c. LOC Commands (Open \T\ Closes Eyes/Devops Engineer) - 0(Both) 2. Best Gaze (Lateral Gaze Paresis) - 0(Normal) 3. Visual Field Loss - 0(No visual loss) 4. Facial Palsy - 0(Normal) 5a. Left Arm: Motor (10-second hold) - 0(No drift) 5b. Right Arm: Motor (10-second hold) - 0(No drift) 6a. Left Leg: Motor (5-second hold - always test supine) - 0(No drift) 6b. Right Leg: Motor (5-second hold - always test supine) - 0(No drift) 7. Limb Ataxia (finger/nose \T\ heel/san - test with eyes open) - 0(Absent) 8. Sensory Loss (pinprick arms/legs/face) - 0(Normal) 9. Best Language: Aphasia (description/naming/reading) - 0(No aphasia) Initials: sp4 Signatures: Dispatcher [employer] EDMS Veda Coreas RN RN lg3 Emily Alvarado RN RN vc1 Mynor Bruno MD MD sp4 Cheryl Bryan RN RN kd4 Corrections: (The following items were deleted from the chart) 08/13 22:11 22:11 BASIC METABOLIC PANEL+C.LAB.BRZ ordered. EDMS EDMS 22:11 22:11 CBC+H.LAB.BRZ ordered. EDMS EDMS 22:11 22:11 HEPATIC FUNCTION+C.LAB.BRZ ordered. EDMS EDMS 22:11 22:11 MAGNESIUM+C.LAB.BRZ ordered. EDMS EDMS 22:11 22:11 PROBNP+C.LAB.BRZ ordered. EDMS EDMS 22:11 22:11 PROTIME (+INR)+COAG.LAB.BRZ ordered. EDMS EDMS 22:11 22:11 Troponin High Sensitivity+C.LAB.BRZ ordered. EDMS EDMS 22:40 22:39 PMHx: Diabetes - NIDDM; kd4 kd4 22:40 22:39 PMHx: High Cholesterol; kd4 kd4 08/14 02:05 02:01 Allergies: Codeine; vc1 vc1 02:07 08/13 22:39 Allergies: Morphine [Inactive]; kd4 lg3 08/14 02:07 06 22:39 Allergies: HYDROCODONE [Inactive]; kd4 lg3 08/14 02:07 08/13 22:39 Allergies: ACETAMINOPHEN [Inactive]; kd4 lg3 08/14 02:09 02:08 sp4 lg3
--- NOTE | 2023-08-15 02:09 | ER ---
Nurse's Notes [facility] Name: Scott Le Age: 88 yrs Sex: Male : 1935 Arrival Date: 08/14/2023 Time: 21:58 Bed 2 Private MD: Diagnosis: Muscle weakness (generalized);Generalized weakness, dizziness, atrial fibrillation Presentation: 08/13 21:45 Chief complaint: Patient states: Dizziness. kd4 21:45 Initial Sepsis Screen: Does the patient meet any 2 criteria? No. Patient's initial kd4 sepsis screen is negative. Onset of symptoms was August 14, 2023. 21:45 Method Of Arrival: EMS kd4 21:45 Acuity: [facility] 3 kd4 08/14 03:07 Initial Sepsis Screen: Does the patient meet any 2 criteria? Does the patient have a kd4 suspected source of infection? No. Patient's initial sepsis screen is negative. Risk Assessment: Do you want to hurt yourself or someone else? Patient reports no desire to harm self or others. 03:10 Ebola Screen: No symptoms or risks identified at this time. kd4 03:10 Coronavirus screen: At this time, the client does not indicate any symptoms associated kd4 with coronavirus-19. Triage Assessment: 08/13 21:45 General: Appears in no apparent distress. comfortable, Behavior is calm, cooperative. kd4 Pain: Denies pain. EENT: No signs and/or symptoms were reported regarding the EENT system. Neuro: Level of Consciousness is awake, alert, obeys commands, lethargic, Oriented to person, place, time, situation, Appropriate for age Crop Duster Helper are equal bilaterally Moves all extremities. Reports dizziness. Cardiovascular: Capillary refill < 3 seconds Patient's skin is warm and dry. Respiratory: Airway is patent Respiratory effort is unlabored, Respiratory pattern is regular. GI: No signs and/or symptoms were reported involving the gastrointestinal system. : No signs and/or symptoms were reported regarding the genitourinary system. Musculoskeletal: No signs and/or symptoms reported regarding the musculoskeletal system. Historical: - Allergies: 08/14 02:03 Hydrocodone-Acetaminophen; vc1 02:06 Morphine; lg3 02:06 ACETAMINOPHEN; lg3 - PMHx: 02:01 Diabetes mellitus; high cholesterol; vc1 - PSHx: 02:01 None; vc1 - Immunization history:: Adult Immunizations unknown. - Infectious Disease History:: Denies. - Social history:: Smoking status: unknown. Screenin/10 22:43 Abuse screen: Denies threats or abuse. kd4 08/14 03:08 [facility] ED Fall Risk Assessment (Adult) Confusion or Disorientation No (0 pts) kd4 Intoxicated or Sedated No (0 pts) Impaired Gait No (0 pts) Mobility Assist Device Used Yes (1 pt) Altered Elimination No (0 pt) Score/Fall Risk Level 0 - 2 = Low Risk Oriented to surroundings, Maintained a safe environment, Educated pt \T\ family on fall prevention, incl call for assistance when getting out of bed, Assessed \T\ reinforced patient's understanding of fall precautions, Provided non-skid footwear. 03:09 Nutritional screening: No deficits noted. Tuberculosis screening: No symptoms or risk kd4 factors identified. Assessment: 08/13 22:43 General: Appears in no apparent distress. Behavior is calm, cooperative. Pain: Denies kd4 pain. Neuro: Level of Consciousness is awake, alert, obeys commands, Oriented to person, place, time, situation, Appropriate for age. Cardiovascular: Denies chest pain. Respiratory: Airway is patent. GI: No signs and/or symptoms were reported involving the gastrointestinal system. : No signs and/or symptoms were reported regarding the genitourinary system. EENT: No signs and/or symptoms were reported regarding the EENT system. Derm: No signs and/or symptoms reported regarding the dermatologic system. Musculoskeletal: No signs and/or symptoms reported regarding the musculoskeletal system. 23:03 Reassessment: EKG DONE. kd4 08/14 00:29 Reassessment: Patient on 3l nc at home , and cpap at night. kd4 02:29 Reassessment: patient placed in gown , allergy band and fall risk arm band in place. kd4 Vital Signs: 08/13 21:45 BP 143 / 62; Pulse 67; Resp 16; Temp 97.8; Pulse Ox 86% on R/A; Pain 0/10; kd4 23:38 BP 159 / 75; Pulse 67; Resp 18; Pulse Ox 95% on 3 lpm NC; kd4 08/14 00:18 BP 131 / 65; Pulse 67; Resp 13; Pulse Ox 90% ; vc1 00:56 BP 150 / 71; Pulse 61; Resp 16; Pulse Ox 100% 3 lpm ; kd4 02:04 Weight 103.87 kg; kd4 02:17 BP 146 / 67; Pulse 58; Resp 13; Temp 98.1; Pulse Ox 100% 3 lpm ; kd4 03:04 BP 148 / 64; Pulse 59; Resp 15; Pulse Ox 97% 3 lpm ; kd4 03:56 BP 133 / 67; Pulse 65; Resp 14; Pulse Ox 97% on 3 lpm NC; vc1 08/13 21:45 Pain Scale: Adult kd4 [place] Coma Score: 08/13 21:45 Eye Response: spontaneous(4). Motor Response: obeys commands(6). Verbal Response: kd4 oriented(5). Total: 15. 08/14 01:27 Eye Response: spontaneous(4). Motor Response: obeys commands(6). Verbal Response: sp4 oriented(5). Total: 15. NIH Stroke Scale Scores: 08/13 23:08 NIHSS Score: 0 sp4 ED Course: 21:45 Client placed on continuous cardiac and pulse oximetry monitoring. NIBP monitoring kd4 applied. controls project engineer on. Pulse ox on. NIBP on. 22:00 Patient arrived in ED. jj6 22:03 Mynor Bruno MD is Attending Physician. sp4 22:39 Triage completed. kd4 22:40 Arm band placed on right wrist. Labs ordered per protocol. Drawn by ED staff. X-ray kd4 ordered. CT ordered. 22:43 XRAY Chest (1 view) In Process Unspecified. EDMS 22:43 by ak, X-ray(s) taken. Inserted saline lock: 20 gauge in right antecubital area, using kd4 aseptic technique. Blood collected. Oxygen administration via nasal cannula \T\ 3L/min. 23:16 CT Head Brain wo Cont In Process Unspecified. EDMS 08/14 02:03 Winston Santos MD is Hospitalizing Provider. sp4 03:05 No provider procedures requiring assistance completed. No provider procedures requiring kd4 assistance completed. Inserted IV is patent, is intact. 03:09 Patient has correct armband on for positive identification. Allergy band placed. Fall kd4 risk band placed. Placed in gown. Bed in low position. Call light in reach. Side rails up X2. Adult w/ patient. Provided Education on: Need for admit. 03:10 Patient admitted, IV remains in place. kd4 03:56 Emily Alvarado, RN is Primary Nurse. vc1 Administered Medications: 08/13 22:21 Drug: NS 0.9% IV 1000 ml IV at 125 ml/hr continuous Route: IV; Rate: 125 ml/hr; Site: [facility] right antecubital; 08/14 03:58 Follow up: IV Status: Completed infusion; IV Intake: 700ml vc1 08/13 22:36 Drug: Meclizine PO 25 mg PO once Route: PO; kd4 08/14 03:58 Follow up: Response: No adverse reaction; Marked relief of symptoms vc1 08/13 22:36 Drug: Promethazine PO 25 mg PO once Route: PO; kd4 08/14 03:57 Follow up: Response: No adverse reaction; Marked relief of symptoms vc1 02:13 Drug: Enoxaparin Sub-Q 1 mg/kg Sub-Q once Route: Sub-Q; Site: left lower abdomen; kd4 03:57 Follow up: Response: No adverse reaction vc1 Medication: 03:57 VIS not applicable for this client. vc1 Intake: 03:58 IV: 700ml; Total: 700ml. vc1 Outcome: 02:08 Decision to Hospitalize by Provider. sp4 03:06 Admitted to Tele via stretcher, kd4 03:06 Condition: stable 03:06 Instructed on the need for admit, Demonstrated understanding of instructions, 03:58 Patient left the ED. vc1 NIH Stroke Scale - NIH Stroke Score Date: 08/14/2023 Time: 23:08 Total Score = 0 10. Dysarthria (speech clarity - read or repeat words) - 0(Normal) 11. Extinction and Inattention (visual/tactile/auditory/spatial/personal) - 0(No abnormality) 1a. Level of Consciousness (LOC) - 0(Alert) 1b. Level of Consciousness (LOC) (Month \T\ Age) - 0(Both) 1c. LOC Commands (Open \T\ Closes Eyes/Industrial Servicer) - 0(Both) 2. Best Gaze (Lateral Gaze Paresis) - 0(Normal) 3. Visual Field Loss - 0(No visual loss) 4. Facial Palsy - 0(Normal) 5a. Left Arm: Motor (10-second hold) - 0(No drift) 5b. Right Arm: Motor (10-second hold) - 0(No drift) 6a. Left Leg: Motor (5-second hold - always test supine) - 0(No drift) 6b. Right Leg: Motor (5-second hold - always test supine) - 0(No drift) 7. Limb Ataxia (finger/nose \T\ heel/san - test with eyes open) - 0(Absent) 8. Sensory Loss (pinprick arms/legs/face) - 0(Normal) 9. Best Language: Aphasia (description/naming/reading) - 0(No aphasia) Initials: sp4 Signatures: Dispatcher [employer] EDMS Veda Coreas RN RN lg3 Jesenia Pacheco6 Emily Alvarado RN RN vc1 Mynor Bruno MD MD sp4 Cheryl Bryan RN RN kd4 Corrections: (The following items were deleted from the chart) 08/13 22:39 22:36 Chief complaint: Patient states: Dizziness kd4 kd4 22:40 22:39 PMHx: Diabetes - NIDDM; kd4 kd4 22:40 22:39 PMHx: High Cholesterol; kd4 kd4 22:49 22:40 General: Appears in no apparent distress. comfortable, Behavior is calm, kd4 cooperative, kd4 22:49 22:40 Pain: Denies pain. kd4 kd4 22:49 22:40 EENT: No signs and/or symptoms were reported regarding the EENT system. kd4 kd4 22:49 22:40 Neuro: Level of Consciousness is awake, alert, obeys commands, lethargic, kd4 Oriented to person, place, time, situation, Appropriate for age Crop Duster Helper are equal bilaterally Moves all extremities. Reports dizziness, kd4 22:49 22:40 Cardiovascular: Capillary refill < 3 seconds Patient's skin is warm and kd4 dry. kd4 22:49 22:40 Respiratory: Airway is patent Respiratory effort is unlabored, kd4 Respiratory pattern is regular, kd4 22:49 22:40 GI: No signs and/or symptoms were reported involving the gastrointestinal kd4 system. kd4 22:49 22:40 : No signs and/or symptoms were reported regarding the genitourinary kd4 system. kd4 22:40 Musculoskeletal: No signs and/or symptoms reported regarding the kd4 musculoskeletal system. kd4 22:43 Client placed on continuous cardiac and pulse oximetry monitoring. NIBP kd4 monitoring applied. controls project engineer on. Pulse ox on. NIBP on. kd4 22:43 GCS: 15, kd4 kd4 08/14 02:05 02:01 Allergies: Codeine; vc1 vc1 02:08/13 22:39 Allergies: Morphine [Inactive]; kd4 lg3 08/14 02:08/13 22:39 Allergies: HYDROCODONE [Inactive]; kd4 lg3 08/14 02:08/13 22:39 Allergies: ACETAMINOPHEN [Inactive]; kd4 lg3
[2023-08-15] MEDS ORDERED: ENOXAPARIN 100 MG/ML SYR SQ ONE (02:12)
[2023-08-15 04:18] VITALS: O2SAT 97
[2023-08-15 04:39] VITALS: BMI 33.7
[2023-08-15] MEDS ORDERED: ONDANSETRON 4 MG/2 ML VIAL IV PRN (04:46)
[2023-08-15] MEDS ORDERED: GLUCAGON 1 MG/VIAL IM PRN (04:46)
[2023-08-15] MEDS ORDERED: ZOLPIDEM TARTRATE 5 MG TABLET PO PRN (04:46)
[2023-08-15] MEDS ORDERED: HYDRALAZINE HCL 20 MG/ML VIAL IV PRN (04:46)
[2023-08-15] MEDS ORDERED: ACETAMINOPHEN 325 MG TABLET PO PRN (04:46)
[2023-08-15] MEDS ORDERED: ALBUTEROL 2.5 MG/3 ML NEB SOL NEB PRN (04:46)
[2023-08-15] MEDS ORDERED: D50W 25 GM/50 ML SYRINGE IV PRN (04:46)
[2023-08-15] MEDS ORDERED: D10W 125 ML IV PRN (04:54)
[2023-08-15] MEDS: INSULIN REGULAR (HUMAN) 100 UNIT/ML SQ SCH (07:30)
[2023-08-15 08:15] LABS: Specific Gravity 1.012 (1.005-1.030); Urine Bilirubin NEGATIVE (Negative); Urine Blood Negative (Negative); Urine Clarity Clear (Clear); Urine Color Colorless (Yellow); Urine Glucose 4+ (Over) (Negative); Urine Ketones NEGATIVE (Negative); Urine Microscopic Reflex YN NO UMIC; Urine Nitrite NEGATIVE (Negative); Urine Protein NEGATIVE (Negative); Urine Urobilinogen Normal (Normal)
[2023-08-15 09:11] VITALS: BP 159/93
[2023-08-15] MEDS: LOSARTAN POTASSIUM 50 MG TABLET PO SCH (10:03)
--- NOTE | 2023-08-15 11:36 | RAD REPORT ---
EXAM DESCRIPTION: MRI - Brain Wo Cont - 08/15/2023 9:24 am CLINICAL HISTORY: Dizziness COMPARISON: Head CT August 14, 2023 TECHNIQUE: Axial, sagittal, and coronal magnetic resonance images of the brain were obtained. FINDINGS: Mild to moderate signal within periventricular, deep and subcortical white matter probably ischemic changes secondary to small vessel disease Diffusion-weighted/ADC mapping does not reveal evidence of acute infarction. Mild prominence of ventricles related to cerebral atrophy. An extra-axial fluid collection is not noted. Fluid within the sinuses/mastoids is not seen IMPRESSION: No acute intracranial abnormality noted
--- NOTE | 2023-08-15 12:06 | P.CNS ---
Date of Consult: 08/15/23 Chief Complaint: dizziness History of Present Illness: Patient with PMH of HTN, HLD, Atrial fibrillation, presented with dizziness after he took one cannibis chewing gum for back pain, denies chest pain, no palpitations, no SOB, no syncope. Allergies meperidine [From Demerol] Adverse Reaction (Verified 01/07/22 12:41) Passed out/hypotension morphine Adverse Reaction (Verified 08/15/23 10:14) other Home Medications: Aspirin [Aspirin EC 81 MG] 81 mg PO DAILY 01/07/22 Atorvastatin Calcium [Lipitor] 40 mg PO BEDTIME 01/07/22 Cyanocobalamin [Vitamin B-12] 1,000 mcg PO M,W,F 01/07/22 Gabapentin 600 mg PO TID 01/07/22 Losartan/Hydrochlorothiazide [Losartan-Hctz 50-12.5 mg Tab] 1 each PO DAILY 01/07/22 Melatonin [Melatonin ER] 5 mg PO BEDTIME PRN 01/07/22 Tamsulosin [Flomax] 0.4 mg PO DAILY 01/07/22 Empagliflozin [Jardiance] 25 mg PO DAILY 08/15/23 Finasteride [Proscar] 5 mg PO DAILY 08/15/23 Tirzepatide [Mounjaro] 2.5 mg SQ 08/15/23 - Past Medical/Surgical History Diabetic: Yes -: diabetes - borderline -: htn -: hyperlipidemia -: DM -: toncillectomy -: surg. R ear perforated eardrum -: melissa -: Heart stents -: r knee - Family History Mother Medical History: Heart disease, Hypertension Father Medical History: Heart disease - Social History Smoking Status: Unknown if ever smoked Alcohol use: No CD- Drugs: No Caffeine use: Yes Place of Residence: Home Review of Systems 10-point ROS is otherwise unremarkable Physical Examination Temp Pulse Resp BP Pulse Ox 97.9 F 61 16 159/93 H 93 08/15/23 08:00 08/15/23 08:00 08/15/23 08:00 08/15/23 08:00 08/15/23 08:00 General: Alert, In no apparent distress HEENT: Atraumatic, PERRLA, Mucous membr. moist/pink, EOMI, Sclerae nonicteric Neck: Supple, 2+ carotid pulse no bruit, No LAD, Without JVD or thyroid abnormality Respiratory: Clear to auscultation bilaterally, Normal air movement Cardiovascular: Irregular heart rate/rhythm Gastrointestinal: Normal bowel sounds, No tenderness Musculoskeletal: No tenderness Integumentary: No rashes Neurological: Normal gait, Normal speech, Normal tone, Normal affect Lymphatics: No axilla or inguinal lymphadenopathy Laboratory Data (last 24 hrs) 08/14/23 08/14/23 08/14/23 22:25 22:25 22:25 WBC 7.60 Hgb 10.4 L Hct 31.1 L Plt Count 172 PT 11.6 INR 1.06 Sodium 137 Potassium 4.1 BUN 22 H Creatinine 1.30 Glucose 184 H Magnesium 2.8 H Total Bilirubin 0.6 AST 11 L ALT 19 Alkaline Phosphatase 79 - Problems (1) Atrial fibrillation Current Visit: No Status: Active Plan: Patient is currently rate controlled, no pauses on tele overnight, no need for further cardiac work up. follow up as outpatient for event monitor. (2) Hyperlipidemia Onset Date: 10/27/15 Current Visit: No Status: Active Plan: continue lipitor, lipid panel in 3 months. (3) Hypertensive disorder, systemic arterial Onset Date: 10/27/15 Current Visit: No Status: Active Plan: Continue home medications. (4) Dizziness Current Visit: Yes Status: Acute Plan: most likely secondary to cannabis use, non cardiac, no further cardiac work up needed.
--- NOTE | 2023-08-15 12:51 | RAD REPORT ---
EXAM DESCRIPTION: RAD - Chest Single View - 08/14/2023 10:42 pm CLINICAL HISTORY: The patient is 88 years old and is Male; dizzy, weak TECHNIQUE: Frontal view of the chest. COMPARISON: No relevant prior studies available. FINDINGS: LUNGS: There are low lung volumes. The lungs are clear. No consolidation. PLEURAL SPACE: Unremarkable. No pneumothorax. HEART: Unremarkable. No cardiomegaly. MEDIASTINUM: Unremarkable. Normal mediastinal contour. BONES/JOINTS: Degenerative change of the shoulders is noted. No acute fracture. UPPER ABDOMEN: Unremarkable as visualized. IMPRESSION: No acute cardiopulmonary process. Electronically signed by: Shanel Rondon MD 08/14/2023 11:21 PM CDT RP Due to temporary technical issues with the PACS/Fluency reporting system, reports are being signed by the in house radiologist without review as a courtesy to ensure prompt reporting. The interpreting r adiologist is fully responsible for the content of the report.
--- NOTE | 2023-08-15 12:51 | RAD REPORT ---
EXAM DESCRIPTION: CT - Head Brain Wo Cont - 08/15/2023 7:32 am CLINICAL HISTORY: DIZZINESS COMPARISON: None available TECHNIQUE: Axial CT of the head obtained from the skull apex to the skull base without contrast. Thi s exam was performed according to our departmental dose-optimization program, which includes automate d exposure control, adjustment of the mA and/or kV according to patient size and/or use of iterative reconstruction technique. FINDINGS: No acute intracranial hemorrhage identified. No mass, mass effect, shift of the midline, a bnormal extra-axial fluid collection or CT evidence of acute ischemic change identified. The ventricu lar system and sulcal spaces are mildly enlarged compatible with mild cerebral atrophy. Scattered a reas of hypodensity throughout the supratentorial white matter are nonspecific and may be related to chronic small vessel ischemic change. The visualized paranasal sinuses and the mastoids are clear. No skull fracture identified. Visualiz ed orbits and globes are unremarkable. Atherosclerotic calcification of the intracranial internal car otid arteries. IMPRESSION: 1. No acute intracranial abnormality by CT criteria. Electronically signed by: Ananth Duran DO 08/15/2023 12:05 AM CDT RP [id number] Due to temporary technical issues with the PACS/Fluency reporting system, reports are being signed by the in house radiologist without review as a courtesy to ensure prompt reporting. The interpreting r adiologist is fully responsible for the content of the report.
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
[2023-08-15 18:39] VITALS: TEMP 98
--- NOTE | 2023-08-16 03:00 | HP ---
Date of Admission: 08/15/2023 Chief Complaint: Dizziness. History Of Present Illness: This is an 88-year-old male patient, who was doing fine in his normal usual state of health until yesterday. He took some CBD gummies at home and within short time within matter of 2 to 3 hours or so after he took it, he started to have dizziness feeling and denies any headache. No fall. No head injury. No nausea, vomiting. He came into emergency room. After that, he was evaluated in the ER and was admitted under my service. When I saw him this morning, he was feeling better compared to his presentation to emergency room. Allergies: NO KNOWN ALLERGIES. Medications: List reviewed. 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 All other systems reviewed and negative. Past Medical History: Significant for hyperlipidemia, hypertension, chronic kidney disease stage IIIA, type 2 diabetes mellitus with chronic kidney disease, lumbar spondylosis, chronic anemia, type 2 diabetes mellitus with neuropathy, benign prostatic hypertrophy with lower urinary tract symptoms, coronary artery disease, paroxysmal atrial fibrillation, lumbar radiculopathy, lumbar spinal stenosis, osteoarthritis at multiple sites, and obstructive sleep apnea. Past Surgical History: Significant for cataract surgery, coronary artery angioplasty with stent placement done on November 02, 2017, back surgery on January 10, 2022, knee surgery which is arthroscopic right knee surgery, and right ear surgery. Family History: Father and mother both with congestive heart failure and sister has rheumatic heart disease. Social History: Negative for smoking and alcohol use. Physical Examination: Vital Signs: Temperature 98.1, pulse 65, respiratory rate 14, blood pressure 133/64, oxygen saturation 97%. Height 5 feet 9 inches, weight 229 pounds. General: Awake, alert, oriented, not in distress. HEENT: Head atraumatic, normocephalic. Conjunctivae nonerythematous. Sclerae white. Mouth, no thrush or edema noted. Ears/Nose, no mass, lesion, discharge noted. Neck: Supple. No JVD, lymph nodes, bruit, thyromegaly noted. Lungs: Bilateral good equal air entry. Clear to auscultation. No rhonchi. No rales. Heart: Normal heart sounds, no murmur or gallop. Abdomen: Soft, bowel sounds normal. No guarding, rigidity, tenderness, mass, hepatosplenomegaly, distention, or bruit noted. Extremities: No leg edema. No calf tenderness. Skin: No rash, ulcer, cellulitis. Lymphatics: No lymph node enlargement in neck, supraclavicular, infraclavicular region. Neuro: No focal neurological deficit. Chest: Unremarkable. External Genitalia: Deferred. Rectal: Deferred. Laboratory Data: White count 7.6, hemoglobin 10.4, platelets 172. Sodium 137, potassium 4.1, chloride 103, bicarb 33, BUN 22, creatinine 1.30, estimated GFR 54, glucose 184. Liver function tests unremarkable. Initial troponin 16.6, second troponin 18. Chest x-ray, no acute changes. CAT scan of the head, no acute intracranial changes and after I saw the patient, MRI of the brain was done without contrast, which came back negative for any acute intracranial changes. Hospital Course: After I saw the patient, MRI of the brain was done and he was on oxygen 2 to 3 L/minute nasal cannula oxygen when I saw him, which was discontinued and room air oxygen saturation was 97%. After MRI was done, decision was made to discharge the patient home. I did advise him not to use any CBD product at all because I feel like there was underlying reason for his dizziness problem and presentation to the hospital. The patient was instructed to get back on all of his previous home medication and to follow up at my office next week. The patient remained in normal sinus rhythm during this hospital course and did not have any evidence of atrial fibrillation. Cardiology consult was requested and Dr. Avilez did evaluate him and his consultation report was reviewed. Final Diagnoses: 1. Dizziness. 2. Anemia, chronic, unspecified. 3. Chronic kidney disease, stage IIIA. 4. Coronary artery disease. 5. Hypertension. 6. Hyperlipidemia. 7. Type 2 diabetes mellitus with chronic kidney disease. 8. Type 2 diabetes mellitus with polyneuropathy. 9. Osteoarthritis, multiple sites. 10. Paroxysmal atrial fibrillation. Total time spent today was 85 minutes that includes review of emergency room records, prior office records, prior hospital records, performing today's evaluation and management, and communication with the nursing staff. DAHIANA/SUKH Voice ID: [id number] MADY
== END 2023-08-15 13:20 | disposition home or self-care (01) ==
LOC: ER 21:58 → ERHOLD 08-15 01:45 → 2ND 08-15 03:19
PROVIDERS: ADMIT Internal Medicine; ATTEND Internal Medicine
DX: I48.0 Paroxysmal atrial fibrillation (principal); R42 Dizziness and giddiness; F12.90 Cannabis use, unspecified, uncomplicated; E78.5 Hyperlipidemia, unspecified; E11.22 Type 2 diabetes mellitus with diabetic chronic kidney disease; I12.9 Hypertensive chronic kidney disease with stage 1 through stage 4 chronic kidney disease, or unspecified chronic kidney disease; M54.9 Dorsalgia, unspecified; M62.81 Muscle weakness (generalized); F41.9 Anxiety disorder, unspecified; N18.31 Chronic kidney disease, stage 3a; D64.9 Anemia, unspecified; M47.896 Other spondylosis, lumbar region; E11.40 Type 2 diabetes mellitus with diabetic neuropathy, unspecified; I25.10 Atherosclerotic heart disease of native coronary artery without angina pectoris; N40.1 Benign prostatic hyperplasia with lower urinary tract symptoms; M19.90 Unspecified osteoarthritis, unspecified site; G47.33 Obstructive sleep apnea (adult) (pediatric); Z79.82 Long term (current) use of aspirin; Z95.5 Presence of coronary angioplasty implant and graft; Z79.85 Long-term (current) use of injectable non-insulin antidiabetic drugs; Z88.5 Allergy status to narcotic agent
CPT/HCPCS: 96361; 93005; 85025; 80048; 36415; 83735; 85610; 82947 ×2; 80076; 81003; 84484 ×2; 83880; 70450; 71045; 70551; 96360; 96372; 99285; Q0169; J8597; J1650; J7030; G0378 ×2

== ENCOUNTER 2023-12-29 23:02 | Emergency (ER) | payer OTHER, MEDICARE ==
[2023-12-29] MEDS ORDERED: FENTANYL CITR 100 MCG/2 ML ONE (23:45)
[2023-12-29] MEDS ORDERED: ONDANSETRON 4 MG/2 ML VIAL ONE (23:45)
[2023-12-29 23:57] LABS: Absolute Basophils 0.1 K/uL (0-0.5); Absolute Eosinophils 0.1 K/uL (0-0.5); Absolute Monocytes 0.9 K/uL (0.1-1.3); Absolute Neutrophil 4.4 K/uL (1.8-8.0); Basophils % 0.8 % (0-1.3); Eosinophils % 0.9 % (0-4.4); Hematocrit 27.9 % (39.6-49.0); Hemoglobin 9.5 g/dL (13.6-17.9); Lymphocytes % 26.9 % (15.3-44.8); MCH 31.3 pg (27.0-35.0); MCV 92.2 fL (80-100); MPV 8.3 fL (7.6-11.3); Neutrophils % 59.4 % (41.7-73.7); Nucleated Red Blood Cells % 0.2 % (0-0); Platelets 171 thou/uL (152-406); RBC Red Blood Cell Count 3.03 M/uL (4.33-5.43)
[2023-12-30 00:13] LABS: Albumin 3.3 g/dL (3.4-5.0); Albumin/Globulin Ratio 0.9 (1.1-1.8); Anion Gap 7.1 mEq/L (5.0-15.0); Bilirubin Total 0.6 mg/dL (0.2-1.0); Globulin 3.6 g/dL (2.3-3.5); Protein, Total 6.9 g/dL (6.4-8.2)
[2023-12-30 00:14] LABS: Potassium 4.1 mEq/L (3.5-5.1)
--- NOTE | 2023-12-30 00:24 | RAD REPORT ---
Clinical Indication: Bed Name: 5; PAIN Comparison: None FINDINGS: 3 views of the right knee were obtained. Oblique fracture of the distal femoral metaphysis is noted. There is approximately one half shaft width lateral displacement of the distal fragment. Mild apex anterior angulation is noted. The fracture is noted to extend at least into the medial knee joint. Sm all right knee joint effusion is noted. Associated soft tissue swelling is seen. No gas densities are noted within the soft tissues. No radiopaque foreign body is noted in the soft tissues. If there is further concern, recommend follow-up radiographs or MRI for complete assessment. IMPRESSION: 1. Oblique fracture of the distal right femoral metaphysis with extension into the knee joint. Electronically signed by: Sahil Salazar MD 12/30/2023 12:19 AM CDT RP Due to temporary technical issues with the PACS/[employer] reporting system, reports are being maxim d by the in-house radiologist without review as a courtesy to ensure prompt reporting the interpreting radiologist is fully responsible for the content of the report. Transcribed Date/Time: 12/30/2023 12:23 AM
--- NOTE | 2023-12-30 00:52 | RAD REPORT ---
CLINICAL HISTORY: TRAUMA. COMPARISON: CT head from today. TECHNIQUE: CT of the maxillofacial region was performed without IV contrast. Axial, coronal, and sagi ttal reconstructions were created and sent to PACS. This exam was performed according to our departmental dose-optimization program, which includes autom ated exposure control, adjustment of the mA and/or kV according to patient size and/or use of iterative reconstruction technique. FINDINGS: No acute osseous abnormality is identified. Chronic appearing minimal irregularity of the nasal bones . The pterygoid plates are intact. Bilateral temporomandibular joint alignment is maintained. Small amount of fluid in the maxillary sinuses and right sphenoid sinus. Minimal mucosal thickening in the ethmoid air cells. The remaining visualized paranasal sinuses and mastoid air cells are clear. Unremarkable appearance of the orbital contents. Please see the separate report regarding intracrania l contents. No foreign object is identified. Demineralized appearance of the bones. IMPRESSION: 1. No acute facial fracture identified. 2. Small amount of fluid in the paranasal sinuses, which can be seen with acute sinusitis. Electronically signed by: Bonny Chamberlain MD 12/30/2023 12:36 AM CDT RP Due to temporary technical issues with the PACS/[employer] reporting system, reports are being maxim d by the in-house radiologist without review as a courtesy to ensure prompt reporting the interpreting radiologist is fully responsible for the content of the report. Transcribed Date/Time: 12/30/2023 12:52 AM
--- NOTE | 2023-12-30 01:23 | ER ---
Nurse's Notes [facility] Name: Scott Le Age: 88 yrs Sex: Male : 1935 Arrival Date: 12/29/2023 Time: 23:02 Bed 5 Private MD: Diagnosis: Mechanical fall;Intra-articular fracture of right distal femur;Traumatic epistaxis Presentation: 12/28 23:16 Chief complaint: EMS states: Pt brought in via EMS from home for mechanical fall from dd2 standing. Per EMS, pt tripped over small dog and fell face forward onto carpeted floor. On scene, pt bleeding from nose and unable to weight on RLE. Coronavirus screen: At this time, the client does not indicate any symptoms associated with coronavirus-19. Ebola Screen: No symptoms or risks identified at this time. Initial Sepsis Screen: Does the patient meet any 2 criteria? No. Patient's initial sepsis screen is negative. Does the patient have a suspected source of infection? No. Patient's initial sepsis screen is negative. Risk Assessment: Do you want to hurt yourself or someone else? Patient reports no desire to harm self or others. Onset of symptoms was December 29, 2023. Care prior to arrival: Bleeding of injury controlled. Ice pack applied to injury. Medication(s) given: FENTANYL 50mg IM X2. 23:16 Method Of Arrival: EMS: [facility] dd2 23:16 Acuity: [facility] 3 dd2 Triage Assessment: 23:21 General: Appears uncomfortable, Behavior is calm, cooperative, appropriate for age. dd2 Pain: Complains of pain in right hip and right knee Pain currently is 10 out of 10 on a pain scale. Pain began 30 min ago. EENT: Nares with bleeding noted. Neuro: Level of Consciousness is awake, alert, obeys commands, Oriented to person, place, time, situation, Appropriate for age. Cardiovascular: Denies chest pain, shortness of breath, Patient's skin is warm and dry. Respiratory: Airway is patent Respiratory effort is even, unlabored, Respiratory pattern is regular, symmetrical. GI: No signs and/or symptoms were reported involving the gastrointestinal system. Abdomen is round non-distended. : No deficits noted. No signs and/or symptoms were reported regarding the genitourinary system. Derm: Wound noted palmar aspect of left forearm Wound is SKIN TEAR. Musculoskeletal: Circulation, motion, and sensation intact. Range of motion: limited in right hip and right knee Reports pain in right hip and right knee. Historical: - Allergies: 23:30 Morphine; dd2 - PMHx: 23:21 diabetes mellitus; High Cholesterol; dd2 - PSHx: 23:21 None; dd2 - Immunization history:: Adult Immunizations up to date. - Infectious Disease History:: Denies. - Social history:: Smoking status: Patient denies any tobacco usage or history of. - Family history:: not pertinent. Screenin:30 [facility] ED Fall Risk Assessment (Adult) History of falling in the last 3 months, dd2 including since admission Yes- single mechanical fall (1 pt) Confusion or Disorientation No (0 pts) Intoxicated or Sedated No (0 pts) Impaired Gait Yes (1 pt) Mobility Assist Device Used No (0 pt) Altered Elimination No (0 pt) Score/Fall Risk Level 0 - 2 = Low Risk Oriented to surroundings, Maintained a safe environment, Educated pt \T\ family on fall prevention, incl call for assistance when getting out of bed, Assessed \T\ reinforced patient's understanding of fall precautions, Hourly rounding (assess needs \T\ fall precautionary measures) done. Abuse screen: Denies threats or abuse. Nutritional screening: No deficits noted. Tuberculosis screening: No symptoms or risk factors identified. Assessment: 23:42 Reassessment: SEE TRIAGE ASSESSMENT FOR FULL ASSESSMENT. dd2 Vital Signs: 23:16 BP 115 / 61; Pulse 67; Resp 17; Temp 98.3; Pulse Ox 98% ; Weight 92.99 kg; Height 5 ft. dd2 9 in. ; Pain 10/; 12/29 00:30 BP 103 / 50; Pulse 55; Resp 17; Pulse Ox 100% ; dd2 01:30 BP 158 / 58; Pulse 57; Resp 16; Pulse Ox 100% ; dd2 02:35 BP 132 / 63; Pulse 58; Resp 17; Pulse Ox 100% ; Pain 7/10; dd2 12/28 23:16 Body Mass Index 30.27 (92.99 kg, 175.26 cm) dd2 12/28 23:16 Pain Scale: Adult dd2 02:35 Pain Scale: Adult dd2 ED Course: 12/28 23:11 Patient arrived in ED. al5 23:12 Carlos Lainez MD is Attending Physician. rt 23:13 ANANYA AYALA, ALBERTO is Primary Nurse. dd2 23:21 Triage completed. dd2 23:21 Arm band placed on right wrist. Patient placed in an exam room, on a stretcher, on dd2 pulse oximetry. Ice pack applied. 23:30 Patient has correct armband on for positive identification. Bed in low position. Call dd2 light in reach. Side rails up X2. Provided Education on: MEDICATIONS, CALL LIGHT, LABS/RADIOLOGY. Client placed on continuous cardiac and pulse oximetry monitoring. NIBP monitoring applied. Door closed. Noise minimized. Warm blanket given. Pillow given. Ice pack to injury. Verbal reassurance given. 23:30 No provider procedures requiring assistance completed. dd2 23:46 Inserted saline lock: 22 gauge in left antecubital area, using aseptic technique. al5 23:50 CMP Sent. dd2 23:50 CBC with Diff Sent. dd2 23:50 Initial lab(s) drawn, by ED staff, sent to lab. Patient maintains SpO2 saturation dd2 greater than 95% on room air. 12/29 00:01 Knee Right 2 View In Process Unspecified. EDMS 00:27 CT Head C Spine In Process Unspecified. EDMS 00:27 CT Facial Bones W/O Con In Process Unspecified. EDMS 00:27 CT Pelvis wo Cont In Process Unspecified. EDMS 01:24 initiated transfer with Alison Dunlap\ [facility]. kmf 02:25 Report given to ALBERTO Amor [facility]. dd2 02:25 Knee immobilizer applied on right knee. dd2 02:33 Patient transferred, IV remains in place. dd2 04:55 pt was accepted to [facility]. Number for nurse to nurse report [phone]. kmf Concepcion Sandoval accepted \T\[id number]. Admin approval given by Alison Harding \T\ [id number]. [facility] to transfer pt. Administered Medications: 12/28 23:33 Not Given (Patient Refused): morphineor iv 4 mg IVP once over 4 mins rt 23:50 Drug: Ondansetron IVP 4 mg IVP once; over 2 minutes Route: IVP; Site: left forearm; dd2 12/29 00:05 Follow up: Response: No adverse reaction dd2 12/28 23:50 Drug: fentaNYL (PF) IVP 100 mcg IVP once Route: IVP; Site: left forearm; dd2 12/29 00:05 Follow up: Response: No adverse reaction dd2 02:25 Drug: fentaNYL (PF) IVP 100 mcg IVP once Route: IVP; Site: left antecubital; dd2 02:36 Follow up: Response: No adverse reaction dd2 Medication: 02:34 VIS not applicable for this client. dd2 Outcome: 01:22 ER care complete, transfer ordered by . rt 02:33 Transferred by ground EMS to [facility], Transfer form dd2 completed. 02:33 Condition: stable 02:33 Instructed on the need for transfer, 03:57 Patient left the ED. dd2 Signatures: Dispatcher [employer] EDMS Carlos Lainez MD MD rt Forrester, Kelsey [facility] Anastasia Gomez RN RN al5 DAVIS, DIANA, RN RN dd2 Corrections: (The following items were deleted from the chart) 12/28 23:24 23:21 Allergies: ACETAMINOPHEN; dd2 dd2 23:24 23:21 Allergies: Hydrocodone-Acetaminophen; dd2 dd2 23:24 23:21 Allergies: Morphine; dd2 dd2 23:31 23:21 Allergies: No Known Allergies; dd2 dd2
--- NOTE | 2023-12-30 01:23 | EDPHYS ---
Physician Documentation [facility] Name: Scott Le Age: 88 yrs Sex: Male : 1935 Arrival Date: 12/29/2023 Time: 23:02 Bed 5 Private MD: ED Physician Carlos Lainez HPI: 12/29 01:23 This 88 yrs old Male presents to ER via EMS with complaints of Fall Injury. rt 01:23 Patient presents to the ED with mechanical fall. Patient states that he tripped over rt his dog, causing him to fall on his face. There is reportedly a large amount of blood from his nose which is since stopped. The patient reports a pain to the right hip, right knee. Denies other acute complaints at this time, symptoms are moderate in severity, no other aggravating alleviating factors. Patient denies loss of consciousness. Historical: - Allergies: 12/28 23:30 Morphine; dd2 - PMHx: 23:21 diabetes mellitus; High Cholesterol; dd2 - PSHx: 23:21 None; dd2 - Immunization history:: Adult Immunizations up to date. - Infectious Disease History:: Denies. - Social history:: Smoking status: Patient denies any tobacco usage or history of. - Family history:: not pertinent. ROS: 12/29 01:23 Constitutional: Negative for fever, chills, and weight loss, Cardiovascular: Negative rt for chest pain, palpitations, and edema, Respiratory: Negative for shortness of breath, cough, wheezing, and pleuritic chest pain, Abdomen/GI: Negative for abdominal pain, nausea, vomiting, diarrhea, and constipation, Skin: Negative for injury, rash, and discoloration, Neuro: Negative for headache, weakness, numbness, tingling, and seizure, ENT: Positive for nose bleed, MS/extremity: Positive for injury or acute deformity, pain, Exam: 01:23 Constitutional: This is a well developed, well nourished patient who is awake, alert, rt and in no acute distress. Head/Face: Normocephalic, atraumatic. Chest/axilla: Normal chest wall appearance and motion. Nontender with no deformity. No lesions are appreciated. Cardiovascular: Regular rate and rhythm with a normal S1 and S2. No gallops, murmurs, or rubs. Normal PMI, no JVD. No pulse deficits. Respiratory: Lungs have equal breath sounds bilaterally, clear to auscultation and percussion. No rales, rhonchi or wheezes noted. No increased work of breathing, no retractions or nasal flaring. Abdomen/GI: Soft, non-tender, with normal bowel sounds. No distension or tympany. No guarding or rebound. No evidence of tenderness throughout. Skin: Warm, dry with normal turgor. Normal color with no rashes, no lesions, and no evidence of cellulitis. 01:23 Musculoskeletal/extremity: Swelling, tenderness to the right knee, tenderness to the right hip, pulses, motor, sensation intact. Vital Signs: 12/28 23:16 BP 115 / 61; Pulse 67; Resp 17; Temp 98.3; Pulse Ox 98% ; Weight 92.99 kg; Height 5 ft. dd2 9 in. ; Pain 10; 12/29 00:30 BP 103 / 50; Pulse 55; Resp 17; Pulse Ox 100% ; dd2 01:30 BP 158 / 58; Pulse 57; Resp 16; Pulse Ox 100% ; dd2 02:35 BP 132 / 63; Pulse 58; Resp 17; Pulse Ox 100% ; Pain 7/10; dd2 12/28 23:16 Body Mass Index 30.27 (92.99 kg, 175.26 cm) dd2 12/28 23:16 Pain Scale: Adult dd2 02:35 Pain Scale: Adult dd2 MDM: 12/28 23:12 Medical Screening Exam initiated rt 12/29 01:23 Differential diagnosis: closed head injury, fracture. Data reviewed: vital signs, rt nurses notes, lab test result(s), radiologic studies. Consideration of Admission/Observation Patient requires transfer for orthopedic coverage, request transfer to [facility] system. I considered the following discharge prescriptions or medication management in the emergency department Medications were administered in the Emergency Department. See MAR. Independent interpretation of the following test(s) in the Emergency Department X-Ray: My interpretation is Distal femur fracture seen on interpretation of x-ray images. Care significantly affected by the following chronic conditions: Diabetes. Counseling: I had a detailed discussion with the patient and/or guardian regarding the historical points, exam findings, and any diagnostic results supporting the discharge/admit diagnosis, lab results, radiology results, the need to transfer to another facility. Response to treatment: There is no appreciated change of the patient's symptoms at this time. 12/28 23:14 Order name: CBC with Diff; Complete Time: 00:14 rt 12/28 23:14 Order name: CMP; Complete Time: 00:14 rt 12/28 23:14 Order name: CT Head C Spine rt 12/28 23:14 Order name: CT Facial Bones W/O Con rt 12/28 23:14 Order name: CT Pelvis wo Cont rt 12/29 00:01 Order name: Knee Right 2 View; Complete Time: 01:37 EDMS 12/29 01:26 Order name: Knee Immobilizer: after fentanyl; Complete Time: 02:24 rt Administered Medications: 12/28 23:33 Not Given (Patient Refused): morphineor iv 4 mg IVP once over 4 mins rt 23:50 Drug: Ondansetron IVP 4 mg IVP once; over 2 minutes Route: IVP; Site: left forearm; dd2 12/29 00:05 Follow up: Response: No adverse reaction dd2 12/28 23:50 Drug: fentaNYL (PF) IVP 100 mcg IVP once Route: IVP; Site: left forearm; dd2 12/29 00:05 Follow up: Response: No adverse reaction dd2 02:25 Drug: fentaNYL (PF) IVP 100 mcg IVP once Route: IVP; Site: left antecubital; dd2 02:36 Follow up: Response: No adverse reaction dd2 Disposition Summary: 12/30/23 01:22 Transfer Ordered Notes: Transfer Location: [facility] rt Reason: Higher level of care rt Condition: Stable rt Problem: new rt Symptoms: are unchanged rt Accepting Physician: (12/30/23 03:57) dd2 Diagnosis - Mechanical fall rt - Intra-articular fracture of right distal femur rt - Traumatic epistaxis rt Forms: - Medication Reconciliation Form rt - SBAR form rt Signatures: Dispatcher [employer] EDMS Carlos Lainez MD MD rt ANANYA AYALA RN RN dd2 Corrections: (The following items were deleted from the chart) 12/28 23:15 23:15 Head C Spine MPR Wo Con+CT.RAD.BRZ ordered. EDMS EDMS 23:15 23:15 Facial Bones W/ MPR+CT.RAD.BRZ ordered. EDMS EDMS 23:15 23:15 Pelvis Wo Cont+CT.RAD.BRZ ordered. EDMS EDMS 23:15 23:15 Knee Right 3 View+RAD.RAD.BRZ ordered. EDMS EDMS 23:24 23:21 Allergies: ACETAMINOPHEN; dd2 dd2 23:24 23:21 Allergies: Hydrocodone-Acetaminophen; dd2 dd2 23:24 23:21 Allergies: Morphine; dd2 dd2 23: 23:21 Allergies: No Known Allergies; dd2 dd2 12/29 03:57 01:22 rt dd2
--- NOTE | 2023-12-30 01:52 | RAD REPORT ---
EXAM DESCRIPTION: CT HEAD AND CERVICAL SPINE WITHOUT IV CONTRAST 12/30/2023 12:35 AM CDT CLINICAL HISTORY: 88 years, Male, Trauma. COMPARISON: MR Brain 08/15/[address] Head 08/14/2023. TECHNIQUE: CT imaging of the head and cervical spine were performed without IV contrast. Subsequent 2 -D multiplanar reformats were generated in the sagittal and coronal plane and reviewed. This exam was performed according to our departmental dose-optimization program which includes use of Automated Exposure Control, adjustment of the mA and/or kV according to patient size and/or use of iterative reconstruction technique. Contrast: No intravenous contrast. FINDINGS: Head: Brain: The brain demonstrate prominence of the sulci and gyri corresponding to mild brain atrophy. Th ere is periventricular white matter changes of microvascular ischemia. No acute intracranial hemorrhage. No midline shift and/or mass effect. Ventricles/CSF spaces: Orbits: Paranasal sinuses: Imaged paranasal sinuses demonstrate minimal mucosal thickening ethmoid sinuses an d right maxillary sinus. Mastoids/middle ears: Clear. Bones: Calvarium, skull base, and imaged facial bones are normal. Scalp/facial soft tissues: Incidentally is noted presence of a small area of thickening minimal hyper density within the subcutaneous tissue frontal bone corresponding to site of injury/superficial contusion. Cervical spine: Curvature: The lordotic curve is preserved. The alignment, vertebral body heights, and disc spaces ar e normal. Bones: The bones are demineralized. There is no evidence of fracture or subluxation. Discs: There is degenerative disc disease with anterior spondylosis and posterior osteophyte complex at C4-C7. There is spinal canal narrowing at C4/C5. Joints: There are uncovertebral degenerative changes at C2-T1 with grade 1 anterolisthesis of C7 over T1. Soft tissues: There is no prevertebral soft tissue swelling. Sagittal coronal reformatted images demonstrate no subluxation or bony abnormalities. Lung apices: The lung apices demonstrate to be within normal limits. IMPRESSION: No acute intracranial hemorrhage. 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 No evidence of acute fracture or subluxation of the cervical spine. Degenerative disc disease and uncovertebral degenerative changes at C2-T1 with grade 1 anterolisthesi s of C7 over T1. Spinal canal narrowing at C4/C5. Electronically signed by: Ky Garcia MD 12/30/2023 01:11 AM CDT RP Due to temporary technical issues with the PACS/[employer] reporting system, reports are being maxim d by the in-house radiologist without review as a courtesy to ensure prompt reporting the interpreting radiologist is fully responsible for the content of the report. Transcribed Date/Time: 12/30/2023 1:52 AM
--- NOTE | 2023-12-30 01:52 | RAD REPORT ---
[facility] DESCRIPTION: CT PELVIS WITHOUT IV CONTRAST 12/30/2023 12:38 AM CDT CLINICAL HISTORY: 88 years, Male, Trauma. COMPARISON: None. FINDINGS: Multiple transaxial tomograms of the pelvis were obtained utilizing 2.5 mm by thickness at 2.5 mm int erval reconstruction without the administration of IV contrast. Subsequent to the 3-D multiplanar reformats were generated for subsequent interpretation. An individualized dose optimization technique, Automated Exposure Control, was utilized for the perfo rmed procedure. The visualized portions of the large and small bowel demonstrate to be within normal limits. : The urinary bladder demonstrate to be unremarkable. Genitalia: The uterus demonstrate to be within normal limits. There are normal adnexal structures. The distal portion of the abdominal aorta and iliac arteries demonstrate minimal atheromatous plaque. There is no evidence for pelvic ascites and/or pelvic lymphadenopathy. The bony elements of the pelvis demonstrate demineralized. No evidence for acute bony injuries. The lower lumbar spine demonstrate degenerative changes at L4/L5 and minimally at L5/S1. Sacrum demonstrate to be intact. Iliac bones, superior and inferior pubic ramus as well as bilateral hip joints demonstrate to be with in normal limits. IMPRESSION: No evidence for acute bony injuries. Degenerative changes lower lumbar spine. Electronically signed by: Ky Garcia MD 12/30/2023 01:13 AM CDT RP Due to temporary technical issues with the PACS/[employer] reporting system, reports are being maxim d by the in-house radiologist without review as a courtesy to ensure prompt reporting the interpreting radiologist is fully responsible for the content of the report. Transcribed Date/Time: 12/30/2023 1:52 AM
[2023-12-30] MEDS ORDERED: FENTANYL CITR 100 MCG/2 ML ONE (02:14)
[2023-12-30 14:35] VITALS: TEMP 98.3
[2023-12-30 14:36] VITALS: O2SAT 100
[2023-12-30 14:38] VITALS: BP 132/63
== END 2023-12-30 03:57 | disposition short-term general hospital (02) ==
LOC: ER 23:02
DX: S72.491A Other fracture of lower end of right femur, initial encounter for closed fracture (principal); R04.0 Epistaxis; W18.09XA Striking against other object with subsequent fall, initial encounter
CPT/HCPCS: 85025; 36415; 80053; 70450; 72125; 72192; 70486; 76377; 73560; 99285; J3010 ×2; J2405